=== PATIENT | male | born 1955 | race Caucasian/White ===

== ENCOUNTER → 2017-10-08 15:35 | Outpatient (CLI) | payer MEDICARE, MEDICAID, SELFPAY ==
--- NOTE | 2017-10-08 13:00 | COLBX_PTH ---
PATIENT: PRIYANKA VELEZ LOC: [facility] U#:[id number] AGE/SX: 69/M ROOM: RE10/08/[address]: Dr. Richie Johnson MD : 1955 BED: DIS: SPEC #: [id number] RECD: 10/08/17 15:24 STATUS: DREW JOSH #: [id number] BUBBA: 10/08/17 13:[address]: Richie Johnson DEPT: SURGICAL PATHOLOGY RECD BY: Wilian Lagunas ENTERED: 10/09/17 08:17 SP TYPE: COLON BX OTHR DR: Dr. Adam Rob, [facility] Tissues: Right colon Procedures: Surgery Specimen Level IV HEADER OPERATION: Colonoscopy with biopsies PRE-OP DIAGNOSIS: Screening/polyp TISSUE SUBMITTED: Right colon biopsy, rule out adenoma MICROSCOPIC DIAGNOSIS Right colon, biopsy: Fragments of colonic mucosa, no pathologic diagnosis. Negative for adenomatous changes. SJ:navid 6/13/18 MICROSCOPIC DESCRIPTION Slides are reviewed. GROSS DESCRIPTION Received in fixative is one container labeled with the patient's name and designated right colon. The specimen consists of two irregular fragments of light stehi soft tissue that in aggregate measure 0.5 x 0.2 x 0.1 cm. The specimen is totally submitted in one cassette. / SJ:rg 10/09/17 TC:4 CPT: 11893
--- NOTE | 2017-10-08 15:35 | DT_ITS ---
This patient was seen during an EMR downtime October 01, 2017 - October 08, 2017. This patient may have a combination of paper and electronic documentation or all paper documentation. All documentation is viewable within the e-chart portion of [facility] for each patient visit.
== END ==
PROVIDERS: Family Provider Preventive Medicine Occupational Medicine; PCP Preventive Medicine Occupational Medicine; Visit Provider Internal Medicine Gastroenterology
DX: Z12.11 Encounter for screening for malignant neoplasm of colon (principal)
CPT/HCPCS: 88305

== ENCOUNTER → 2017-12-19 10:59 | Outpatient (CLI) | payer MEDICARE, MEDICAID, SELFPAY ==
[2017-12-19 11:21] LABS: Platelet Count 290 K/mm3 (150-450)
[2017-12-19 11:42] LABS: Valproic Acid (Depakene) Level 60 ug/mL (50-100)
[2017-12-19 11:49] LABS: AST(SGOT) 19 U/L (15-37); Alanine Aminotransfer ALT/SGPT 33 U/L (16-61)
== END ==
PROVIDERS: Family Provider Preventive Medicine Occupational Medicine; PCP Preventive Medicine Occupational Medicine; Visit Provider Psychiatry & Neurology Psychiatry
DX: Z79.899 Other long term (current) drug therapy (principal)
CPT/HCPCS: 36415; 80164; 84450; 84460; 85049

== ENCOUNTER → 2018-06-25 09:38 | Outpatient (CLI) | payer MEDICARE, MEDICAID, SELFPAY ==
[2018-06-25 10:59] LABS: Thyroid Stim Hormone (TSH) 8.37 uIU/mL (0.358-3.74)
== END ==
PROVIDERS: Family Provider Preventive Medicine Occupational Medicine; PCP Preventive Medicine Occupational Medicine; Referring Provider Preventive Medicine Occupational Medicine; Visit Provider Preventive Medicine Occupational Medicine
DX: R53.83 Other fatigue (principal)
CPT/HCPCS: 36415; 84443

== ENCOUNTER → 2018-07-22 10:26 | Outpatient (CLI) | payer MEDICARE, MEDICAID, SELFPAY ==
--- NOTE | 2018-07-22 10:31 | US_ITS ---
STUDY: THYROID ULTRASOUND REASON FOR EXAM: Male, 62 years old. Hypothyroidism. TECHNIQUE: Ultrasound evaluation of the thyroid was performed with real-time and static rios-scale imaging. COMPARISON: None. FINDINGS: RIGHT LOBE: The right lobe of the thyroid gland measures 4.4 x 1.3 x 1.8 cm. There is a homogeneous echotexture. There are no demonstrated solid, cystic or complex lesions. Normal vascularity on Doppler imaging. LEFT LOBE: The left lobe of the thyroid gland measures 3.9 x 1.5 x 1.5 cm. There is a homogeneous echotexture. There are no demonstrated solid, cystic or complex lesions. Normal vascularity on Doppler imaging. ISTHMUS: The isthmus measures 0.2 cm. The regional lymph nodes are normal. US/Thyroid IMPRESSION: Normal ultrasound examination of the thyroid. Electronically Signed: Chuck Walters DO at 10:36 EDT Tel [phone], Service support ,
== END ==
PROVIDERS: Family Provider Preventive Medicine Occupational Medicine; PCP Preventive Medicine Occupational Medicine; Referring Provider Preventive Medicine Occupational Medicine; Visit Provider Preventive Medicine Occupational Medicine
DX: E03.9 Hypothyroidism, unspecified (principal)
CPT/HCPCS: 76536

== ENCOUNTER → 2018-11-11 09:24 | Outpatient (CLI) | payer MEDICARE, MEDICAID, SELFPAY ==
[2018-11-11 10:29] LABS: Platelet Count 295 K/mm3 (150-450)
[2018-11-11 11:43] LABS: Valproic Acid (Depakene) Level 72 ug/mL (50-100)
[2018-11-11 14:12] LABS: AST(SGOT) 14 U/L (15-37); Alanine Aminotransfer ALT/SGPT 20 U/L (16-61); Free T3 2.8 pg/mL (2.18-3.98); Prolactin 31.4 ng/mL; T4 Free Direct 1.05 ng/dL (0.76-1.46); Thyroid Stim Hormone (TSH) 5.33 uIU/mL (0.358-3.74)
[2018-11-13 11:01] LABS: Anti-Thyroglobulin AB < 1.0 IU/mL (0.0-0.9); Thyroglobulin, Serum Qt. 28.9 ng/mL (1.4-29.2); Thyroid Peroxidase AB 11 IU/mL (0-34)
== END ==
PROVIDERS: Family Provider Preventive Medicine Occupational Medicine; PCP Preventive Medicine Occupational Medicine; Referring Provider Preventive Medicine Occupational Medicine; Visit Provider Preventive Medicine Occupational Medicine
DX: R94.6 Abnormal results of thyroid function studies (principal); Z79.899 Other long term (current) drug therapy
CPT/HCPCS: 36415; 80164; 83036; 84146; 84432; 84439; 84443; 84450; 84460; 84481; 85049; 86376; 86800

== ENCOUNTER → 2019-02-25 13:41 | Outpatient (CLI) | payer MEDICARE, MEDICAID, SELFPAY ==
[2019-02-25 15:34] LABS: Thyroid Stim Hormone (TSH) 2.06 uIU/mL (0.358-3.74)
== END ==
PROVIDERS: Family Provider Preventive Medicine Occupational Medicine; PCP Preventive Medicine Occupational Medicine; Referring Provider Preventive Medicine Occupational Medicine; Visit Provider Preventive Medicine Occupational Medicine
DX: E03.9 Hypothyroidism, unspecified (principal)
CPT/HCPCS: 36415; 84443

== ENCOUNTER → 2019-12-03 12:14 | Outpatient (CLI) | payer MEDICARE, MEDICAID, SELFPAY ==
[2019-12-03 13:12] LABS: Valproic Acid (Depakene) Level 86 ug/mL (50-100)
[2019-12-03 13:18] LABS: ALB/GLOB Ratio 0.8 RATIO (0.9-2.4); AST(SGOT) 17 U/L (15-37); Alanine Aminotransfer ALT/SGPT 22 U/L (16-61); Albumin, Serum 3.3 g/dL (3.2-5.0); Alkaline Phosphatase 57 U/L (45-117); Anion Gap 4 (5-15); BUN 21 mg/dL (7-18); BUN/Creat Ratio 15.7 RATIO (10-20); Calcium,Total 8.7 mg/dL (8.5-10.1); Chloride 103 mmol/L (98-107); Creatinine, Serum 1.34 mg/dL (0.70-1.30); EST Glomerular Filtration Rate 57 mL/min (>60); Est Glom Filt Rate - Afr Amer 69 mL/min (>60); Globulin 3.9 g/dL (2.2-4.2); Glucose 90 mg/dL (74-106); PSA,Total - Annual Screen 1.95 ng/mL (0.00-4.00); Potassium 4.1 mmol/L (3.5-5.1); Protein, Total 7.2 g/dL (6.4-8.2); Sodium Level 139 mmol/L (136-145); Thyroid Stim Hormone (TSH) 2.56 uIU/mL (0.358-3.74)
== END ==
PROVIDERS: PCP Preventive Medicine Occupational Medicine; Referring Provider Preventive Medicine Occupational Medicine; Visit Provider Preventive Medicine Occupational Medicine
DX: E78.2 Mixed hyperlipidemia (principal); E03.9 Hypothyroidism, unspecified; Z12.5 Encounter for screening for malignant neoplasm of prostate; F20.89 Other schizophrenia
CPT/HCPCS: 36415; 80053; 80164; 84153; 84443; G0103

== ENCOUNTER → 2019-12-10 16:54 | Outpatient (CLI) | payer MEDICARE, MEDICAID, SELFPAY ==
[2019-12-10 17:20] LABS: Platelet Count 263 K/mm3 (150-450)
[2019-12-10 18:07] LABS: Valproic Acid (Depakene) Level 82 ug/mL (50-100)
[2019-12-10 18:08] LABS: AST(SGOT) 14 U/L (15-37); Alanine Aminotransfer ALT/SGPT 20 U/L (16-61)
[2019-12-10 18:13] LABS: Hemoglobin A1c 5.5 % (3.8-5.6)
== END ==
PROVIDERS: PCP Preventive Medicine Occupational Medicine; Referring Provider Psychiatry & Neurology Psychiatry; Visit Provider Psychiatry & Neurology Psychiatry
DX: Z79.899 Other long term (current) drug therapy (principal)
CPT/HCPCS: 36415; 80164; 82140; 83036; 84450; 84460; 85049

== ENCOUNTER 2020-01-20 08:00 | Outpatient (RCR) | payer MEDICARE, MEDICAID, SELFPAY ==
--- NOTE | 2019-06-30 17:39 | HP.PTEVAL_ITS ---
Patient's Visit Information PRIYANKA VELEZ is a 63 year old M referred to Physical Therapy by Adam Rob DO with a diagnosis of Dizziness and PD. Date of Evaluation: 06/30/19 Physical Therapist: ONI Suarez - Visit Plan Frequency: 2x /Week Duration: 6 Weeks Plan: PT is blind and PD is secondary to schizo meds over the years. 2X/ week for 4-6 weeks for gait training, balance training on and off the foam when appropriate, LE strengthening, dual task movements with HEP - Subjective Findings: Sometimes he gets pushed in a wheelchair. He does have an up walker that he just purchased. He has PD and Blind. He needs assistance with steering becasue he can not see. Somedays he walks or and other days he can not walk so good. Time thinks that his legs just wont go. He has a lot of frozen movem ents and hard for him to move his feet. He is on Schizophrenia meds. He has been on those for years and years and those have caused the PD. Dr Cronin Dx him with PD. Stairs: 5-6 steps with 1 L hand rail. He has not had any falls. He does go to bathroom by himself with hands on B sides. His walking has gotten worse last few weeks like his feet are cemented to the ground. - Objective Gait: walks with patient care assistant and therapist holding onto arm and encourgaing big steps. Pt likes to take small steps with feet barely leaving the floor. He will stop in the middle of a walk and freeze and takes some encouragement to continue. Turning 180 degrees: Pt does not like to advance his L foot and his feet are like stuck to the floor. Sit to stand: min A. LE MMT: B hip abd 4- /5, B knee ext 4/5, B knee flex 4/5, B hip flex 4-/5 - Goals Goal 1:: I HEP Goal Time Frame: 4-6 Weeks Goal 2:: Be able to walk with CGA with verbal cues to increase stride length without hesitation 150 feet. Goal Time Frame: 4-6 Weeks Goal 3:: Be able to stand on foam with CGA and feel comfortable with no LOB Goal Time Frame: 4-6 Weeks Goal 4:: Be able to complete dual task exercises in sitting or standing and complete at home Goal Time Frame: 4-6 Weeks - Rehabilitation Potential Rehabilitation Potential: Good - Anticipated Interventions Thank you for the opportunity to evaluate your patient. For Medicare and Medicare HMO plans, please review the plan of care and approve it. It will need to be FAXED BACK to us at [phone] for Medicare purposes. For Medicare only, by signing this I certify the plan of care. Please let me know if there are questions or concerns regarding this plan of care. Physician Signature: Date:
--- NOTE | 2019-07-01 08:14 | HP.OTEVAL_ITS ---
Patient's Visit Information PRIYANKA VELEZ is a 63 year old M, referred to Occupational Therapy by Adam Rob DO, with a diagnosis of PD. Date of Evaluation: 06/30/19 Occupational Therapist: RACHEL Fatima/Jose Luis, CHT - Subjective Subjective: This 63 year old male was seen for OT eval with dx. of PD. pt blind. Pt lives in home with two other individuals- likes to be in his room, listen to music and goes to workshop. PT dresses himself- use of shower chair but bathes himself- will dress in his room sitting in recliner- but does so ind. Here today due to a increase in right hand tremor. Has had tremor of right UE for about a year. states it bothers him that he makes a mess while eating. has ramp entrance split level home- has 5-6 steps up to his bedroom-he is mobility in home he is supervised. staff has used plate guard to help decrease food spillage. goes to workshop- 9-3pm - ADLs Comments: pt lives in snf with two others- has assistance as needed with bathing/dressing- per care staff pt is supervised with bathing-but pt performs all ADLS at DANIELLE level- has staff perform set-up for meals and cut his food- pt concerns are with increase tremor and increase spillage of food- pt able to drink without difficulty- - Objective Objective/Observation: slight resting tremor noted when given spoon no noted increase in tremor- therapist will work with pt and has advised staff to observe if pt has increase tremor when pt is tired, see if he has increase spillage with shallow spoons- staff receptive- - ROM ROM Comments: pt demo all ROM WNL - St[employer]iting Intern: right 48# left boiler erector 50# Lateral Pinch: right 12# left 12# Strength Comments: pt demo with good functional strength - Sensation Sensation Comments: denies - Quick DASH-Disab of Arm,Shoulder& Hand Quick DASH Score: 27.2725 - Goals Goal:: Pt and care staff will demo understanding of using ad. eq. to increase ind. with self feeding with report of min. spillage by d/c - Rehabilitation General Assessment: pt demo with slight tremor of right UE limiting pts self feeding- pt would benefit from skilled OT services 3 visits to ed. pt and staff on ad. eq. use of plates and or weighted silverwear to decrease spillage with meals. Rehabilitation Potential: Good - Anticipated Interventions Anticipated Interventions: ADL Training, Education re assistive Equipment, Caregiver Training, Home Program - Visit Plan Frequency: 1x/Week Duration: 3 Weeks TEXT: Thank you for the opportunity to evaluate your patient. For Medicare and Medicare HMO plans, please review the plan of care and approve it. It will need to be FAXED BACK to us at [phone] for Medicare purposes. Please let me know if there are questions or concerns regarding this plan of care. Physician Sig nature: Date:
--- NOTE | 2019-10-24 16:01 | HP.OT.NRP ---
PRIYANKA VELEZ was seen in my office for initial evaluation on 06/30/19. The following Plan of Care was established for this patient: Initial Frequency: 1x/Week Initial Duration: 3 Weeks Anticipated Interventions: ADL Training, Education re assistive Equipment, Caregiver Training, Home Program This patient was last seen in our office 07/20/29. Pertinent comments regarding their Occupational therapy will appear below: pt was seen for 2 ot visits due to covid pt has not rescheduled and due to time lapse in skilled therapy services pt d/c. At this point I will be discontinuing this patient from occupational therapy. I would be happy to see this patient again in the future if found appropriate by the physician. Thank you! Ariela Espinoza, OTR/L, CHT
--- NOTE | 2019-10-29 17:28 | HP.PTREVAL ---
Dr. Adam Rob, DO, It has been my pleasure to treat PRIYANKA VELEZ over the last 2 visits for Dizziness and PD. Please see the progress note below for an update on the physical therapy plan of care! Subjective: Elda gave all the information. Pt was told that he had PD and he has a serious decline in his walking. This all came about cause he was at the eye Dr and he suggested that he do some OT and PT. He is doing better with his walking at home and has 5-6 steps upstairs and was going up on his bottom and his provider has encouraged him to use his legs and he is walking back and forth to the bathroom. His gait is very shuffled and takes him a long time. They think that he is alos blind and anxiety also is part of him not walking. He has been in the house for 33 years and knows the layout of the house. He is unsure of himself at the top of the stairs. He walks the carter to guide him at home. He has been pushing his chair to the dining room table. He likes to hold onto the door frame and wont let go when leaving . He does have an upright walker and it almost rolls too fast..... Provider was going to send the rollator to see if they could slow it down. He is pedeling with a floor bike up to 25 min each morning. They have been encouraging the walking to the porch. Pt reports that he is afraid to fall. Elda says that his legs start shaking with his walking. Elda reports that he uses a shower chair and has trouble with sitting to standing. Objective/Function: LE MMT: hip flex 4-/5 B, Knee ext B 4-/5, Knee flex B 4-/5. Sit to stand: uses hands to stand.....keeps hands on the wheelchair and needs coaxing to get her hand off the chair rails to stand. Standning... pt able to stand unsupported X 30 seconds but then started to have knee buckling and anxiety about standing alone and started panicking. Gait: walked with Elda (aide) and therapist hand in hand and he would not advance his feet without coaxing and his feet were shuffling.... He would start to walk fluid and then his feet would stick to the ground and his upper body would shift forward and he would need increase in commands to move his feet. Got the Ustep out and pt started to walk a few feet with min A and verbal commands and then he got tired and his trunk and ustep was forward and his feet were clued to the floor. He was tired for the day Plan Plan: PT is blind and PD is secondary to schizo meds over the years. 2X/ week for 4-6 weeks for gait training, balance training on and off the foam when appropriate, LE strengthening, dual task movements with HEP Goals Goal 1:: I HEP Goal Time Frame: 4-6 Weeks Goal 2:: Be able to walk with CGA with verbal cues to increase stride length without hesitation 150 feet with least restrictive device. Goal Time Frame: 4-6 Weeks Goal 3:: Be able to stand on foam with CGA and feel comfortable with no LOB Goal Time Frame: 4-6 Weeks Goal 4:: Be able to complete dual task exercises in sitting or standing and complete at home Goal Time Frame: 4-6 Weeks Anticipated Interventions Please do not hesitate to contact me at [phone] by phone or if you have questions or concerns regarding this new plan of care! Sincerely, Jackie Kaplan, MPT
--- NOTE | 2019-11-26 18:32 | HP.PTREVAL ---
Dr. Adam Rob, DO, It has been my pleasure to treat PRIYANKA VELEZ over the last 9 visits for Dizziness and PD. Please see the progress note below for an update on the physical therapy plan of care! Subjective: Elda (caregiver) said that Marlon has a virtual appointment with Neuro eli and is a new Dr and he has a regular family Dr in the begining of the month. They want to continue as they dont know if his anxiety will get addressed until November. Elda reports that they are walking in the driveway at home but he is so nervoust that it is difficult for them to do so. Objective/Function: Pt has good days and bad days. Sometimes he is able to walk a few smooth recip steps but then he stops and will not order picker/assembler his feet. He is getting better with sit to stnad by pushing off his chair and not pulling self up. He is also getting better at standing Olivia with nothing to hold onto. Plan Plan: PT is blind and PD is secondary to schizo meds over the years. 2X/ week for 4-6 weeks for gait training, balance training on and off the foam when appropriate, LE strengthening, dual task movements with HEP Goals Goal 1:: I HEP Goal Time Frame: 4-6 Weeks Goal 2:: Be able to walk with CGA with verbal cues to increase stride length without hesitation 150 feet with least restrictive device. Goal Time Frame: 4-6 Weeks Goal 3:: Be able to stand on foam with CGA and feel comfortable with no LOB Goal Time Frame: 4-6 Weeks Goal Progress: Progressing Goal 4:: Be able to complete dual task exercises in sitting or standing and complete at home Goal Time Frame: 4-6 Weeks Goal 5:: Be able to stand with feet together with head turns without LOB or fear of falling Goal Time Frame: 4-6 Weeks Anticipated Interventions Please do not hesitate to contact me at [phone] by phone or if you have questions or concerns regarding this new plan of care! Sincerely, Jackie Kaplan, MPT
--- NOTE | 2020-01-20 11:02 | HP.PTDCSUM_ITS ---
It has been my pleasure to treat PRIYANKA VELEZ referred by Dr. Adam Rob DO, with the diagnosis of Dizziness and PD for a total of 19 visit(s). Discharge Date: 01/20/20 Please see the following information for a summary of their discharge status. Subjective: Elda, caregiver, reports that it has been difficult for Marlon to go up and down the stairs... he has one hand rail and one is on order. He freezes on the steps. He is having a hard time with walking several feet from the kitchen table to the stairs..... he takes very very tiny steps and does not pickle solution maker his feet. Elda feels that they are having to pull him to go across the dining room floor etc. They have been giving him the dining room chair to push across the floor and he feels less tense when he is moving across the floor. They have been doing peddling at home in his chair bike. % Improvement: 20 Objective/Function: Pt is not progressing at this time. He is not progressing with his walking and he has a terrible time with moving his feet. Even sit to stand he starts shaking and needs help releasing his manager access to stand up from the chair. Pt was given HEP via Elda, caregiver, to do at home 5X/ wek. Pt needs reassessment from MD as his transfers, walking, stairs have all gotten worse with freezing. Not sure if PD related or anxiety releated. Goal 1:: I HEP Goal Progress: Progressing Goal 2:: Be able to walk with CGA with verbal cues to increase stride length without hesitation 150 feet with least restrictive device. Goal Progress: Not Progressing Goal 3:: Be able to stand on foam with CGA and feel comfortable with no LOB Goal Progress: Progressing Goal 4:: Be able to complete dual task exercises in sitting or standing and complete at home Goal Progress: Not Progressing Goal 5:: Be able to stand with feet together with head turns without LOB or fear of falling Goal Progress: Not Progressing Plan: DC PT at this time..... back to Neurologist with HEP Discharge Comments: DC PT to HEP. Possible home assessment for stairs (possible chair lift) and other wall railings etc to make things a little more functional for him at home. If there are questions or concerns regarding this patient's physical therapy, please feel free to call me at [phone]. Thank you for the referral of this patient. Sincerely, Jackie Kaplan MPT
== END 2020-01-20 19:00 | disposition home or self-care (01) ==
LOC: PT 08:00
PROVIDERS: PCP Preventive Medicine Occupational Medicine; Referring Provider Preventive Medicine Occupational Medicine; Visit Provider Preventive Medicine Occupational Medicine
DX: G20 Parkinson's disease (principal)
CPT/HCPCS: 97110; 97116; 97163; 97166; 97530

== ENCOUNTER → 2020-06-09 15:14 | Outpatient (CLI) | payer MEDICARE, MEDICAID, SELFPAY ==
[2020-06-09 16:07] LABS: Platelet Count 240 K/mm3 (150-450)
[2020-06-09 16:46] LABS: AST(SGOT) 12 U/L (15-37); Alanine Aminotransfer ALT/SGPT 19 U/L (16-61); Valproic Acid (Depakene) Level 89 ug/mL (50-100)
== END ==
PROVIDERS: PCP Preventive Medicine Occupational Medicine; Visit Provider Psychiatry & Neurology Psychiatry
DX: Z79.899 Other long term (current) drug therapy (principal)
CPT/HCPCS: 36415; 80164; 82140; 84450; 84460; 85049

== ENCOUNTER → 2020-06-25 12:49 | Outpatient (CLI) | payer MEDICARE, MEDICAID, SELFPAY ==
--- NOTE | 2020-06-25 12:56 | MRI_ITS ---
STUDY: MRI BRAIN WITHOUT CONTRAST REASON FOR EXAM: Male, 64 years old. NPH TECHNIQUE: Standardized multiplanar fat and water weighted pulse sequences were obtained. COMPARISON: 05/16/2016 FINDINGS: There is disproportionate ventricular enlargement with prominence of the anterior horns and temporal tips of the bilateral lateral ventricles. There is confluent periventricular hyperintensity cloaking the lateral ventricles. There is thinning with bowing of the corpus callosum. There is moderate enlargement of the third ventricle. The findings are highly suggestive of normal pressure hydrocephalus (NPH). There are a limited number of small white matter hyperintensities, distributed throughout the deep white matter tracts of the cerebral hemispheres, consistent with mild chronic white matter ischemic changes. There is no evidence for recent intracranial ischemia or other cause of cytotoxic edema on diffusion weighted imaging (DWI). Normal T2* images of the brain without demonstrated susceptibility artifact. There is no demonstrated hemosiderin stain. Normal bilateral basal ganglia. Normal thalami. There is no extra-axial fluid accumulation. Normal flow voids within the major intracranial circulation suggesting patency by spin echo criteria. Normal sella turcica, pituitary gland, infundibular stalk, optic chiasm and hypothalamus. Normal tectal plate and pineal gland. Normal midbrain, eden and medulla. Normal cerebellum. Normal basal cisterns. Normal bilateral temporal bones. Normal bilateral internal auditory canals. No demonstrated orbital abnormality, within the constraints of a routine brain study. Normal visualized paranasal sinuses. Normal calvarium and skull base. Normal visualized soft tissue structures. Normal visualized upper cervical spine. MRI/Brain without Contrast IMPRESSION: Involutional changes of the brain, as described above. No change in the dilatation of the third and lateral ventricles suggestive of normal pressure hydrocephalus. Electronically Signed: Tex Wilson MD at 15:47 EST Tel , Service support ,
== END ==
PROVIDERS: PCP Preventive Medicine Occupational Medicine; Referring Provider Psychiatry & Neurology Neurology; Visit Provider Psychiatry & Neurology Neurology
DX: G91.2 (Idiopathic) normal pressure hydrocephalus (principal)
CPT/HCPCS: 70551

== ENCOUNTER 2021-06-01 09:33 | Outpatient (CLI) | payer MEDICARE, MEDICAID, SELFPAY ==
[2021-06-01 10:00] LABS: Hematocrit 37.5 % (40-54); Hemoglobin 12.1 g/dL (13.0-16.5); Mean Corp Hgb Conc 32.3 g/dL (32-36); Mean Corpuscular Hgb 31.5 pg (27.0-32.0); Mean Corpuscular Volume 97.7 fL (80-94); Mean Platelet Vol. 9.3 fl (6.2-12.0); Platelet Count 258 K/mm3 (150-450); RBC Distribution Width CV 12.9 % (11.6-14.6); Red Blood Count 3.84 M/mm3 (4.6-6.2); White Blood Count 7.1 K/mm3 (4.4-11.0)
[2021-06-01 10:19] LABS: Hemoglobin A1c 5.4 % (3.8-5.6)
[2021-06-01 10:32] LABS: Valproic Acid (Depakene) Level 85 ug/mL (50-100)
[2021-06-01 10:44] LABS: AST(SGOT) 10 U/L (15-37); Alanine Aminotransfer ALT/SGPT 12 U/L (16-61); Iron 101 ug/dL (65-175); PSA,Total - Annual Screen 1.39 ng/mL (0.00-4.00); Prolactin 42.9 ng/mL; Thyroid Stim Hormone (TSH) 2.62 uIU/mL (0.358-3.74)
== END 2021-06-01 23:59 | disposition short-term general hospital (02) ==
LOC: LAB 09:38
PROVIDERS: PCP Preventive Medicine Occupational Medicine; Referring Provider Psychiatry & Neurology Psychiatry; Visit Provider Psychiatry & Neurology Psychiatry
DX: D64.9 Anemia, unspecified (principal); Z79.899 Other long term (current) drug therapy; Z12.5 Encounter for screening for malignant neoplasm of prostate; E03.9 Hypothyroidism, unspecified
CPT/HCPCS: 80164; 82140; 83036; 83540; 84146; 84153; 84443; 84450; 84460; 85027; G0103

== ENCOUNTER 2021-07-06 16:30 | Outpatient (RCR) | payer MEDICARE, MEDICAID, SELFPAY ==
--- NOTE | 2021-04-08 15:55 | HP.PTEVAL_ITS ---
Patient's Visit Information PRIYANKA VELEZ is a 65 year old M referred to Physical Therapy by Dr. Mike Finley MD with a diagnosis of normal pressure hydrocephalus. Date of Evaluation: 04/08/21 Physical Therapist: ONI Suarez - Visit Plan Duration: 3 Months Plan: 1X/ week for instruction to caregivers about HEP on transfers, gait, HEP. Will work on gait, balance, sensory, LE strength - Subjective Pt had surgery and had a shunt put in for hydrocepalus in August 2020. When he came home he was up walking with the walker after the surgery for a couple of months. But now we are not walking at home. Not sure what changed. He does go up and down the steps with someone and walks down the hallways with both hands on a cedillo rail. Other than that he crawls to get somewhere. They had some home PT come at home but they did not push him. He still has anxiety. The day service he goes to and at home he is pretty much in the chair. Caregiver wants him to come here to PT to push him to walk. He does bare weight and transfer. He lives in a nursing home. The neurologist feels that his legs are weak. He does not see the neurologist for 6 months. He is complaining about dizziness. Dr are not sure what causing the dizziness. He is on meclazene for dizziness and was just put on that within the last couple of months and he is not complaining of dizziness. He is stuggling getting in and out of a chair. He has put on some weight and wondering if his weight has caused more difficulty getting out of a chair. He gets out of bed, goes to potty chair next to bed, gets dressed, shuffles/walks down the hallway with 2 hands on rails and waits at top of stairs for someone to help him down the stairs. - Objective Pt is able to scoot to the edge of the chair on command. Sit to stand: takes coaxing X 2 with a gait belt with hands on wheelchair and will stand up with his trunk fw and knees bent and needed tactile cues and min A to remove his hands from the wheelchair rail and tactile cues to straighten knees and tuck in buttocks. Pt is able to stand unsupported with SBA once he is standing erect. He is also able to stand and rotate head with CGA. Gait: pt is able to walk with a front wheeled walker and take a few shuffled steps then stops and groans and knees move but feet do not. I talked the pt then to take a few more steps and with coaxing he takes a few shuffled steps. LE MMT: B hip flex 4/5, B knee ext 4-/5, B knee flex 4/5, B seated hip abd 4/5 - Balance/Special Test Scores Lower Extremity Functional Score: 10 - Goals Goal 1:: I HEP for the caregiver to work with him at home with gait with a wheeled walker and use // bars for exercises (which they have at home), and LE strengthening Goal Time Frame: 6-8 Weeks Goal 2:: Be able to get up out of a chair on command with CGA on first attempt and stand full erect without hesitation Goal Time Frame: 6-8 Weeks Goal 3:: Be able to walk with front wheeled walker 50 feet continuous steps without hesitation and stopping in middle of walk Goal Time Frame: 6-8 Weeks - Rehabilitation Potential Rehabilitation Potential: Good - Anticipated Interventions Thank you for the opportunity to evaluate your patient. For Medicare and Medicare HMO plans, please review the plan of care and approve it. It will need to be FAXED BACK to us at [phone] for Medicare purposes. For Medicare only, by signing this I certify the plan of care. Please let me know if there are questions or concerns regarding this plan of care. Physician Signature: Date:
--- NOTE | 2021-06-22 17:01 | HP.PTREVAL ---
Dr. Mike Finley MD, It has been my pleasure to treat PRIYANKA VELEZ over the last 6 visits for normal pressure hydrocephalus. Please see the progress note below for an update on the physical therapy plan of care! Subjective: They just have not been here. Pt walks up the steps and down the cedillo to his bedroom. He has a railing on B rails on both sides of the hallway and stairs. He is still dressing himself and showers himself with supervision for safety. Sometimes he goes up the steps good and other times he feels weak at the top of the stairs (it is only 6 setps). One day he was able to get up from the recliner and across the room to his potty chair all by himself and Marlon did not know anyone was watching. He does better when he is told to just do it and no one is touching him such as getting into the van. Pt complains of dizziness all the time. Objective/Function: Pt walked 76 feet with front wheeled walker with wheelchair follow with commands to keep moving his feet. He stopped e=several times and fesination of his feet at times. Plan Plan: 1X/ week for instruction to caregivers about HEP on transfers, gait, HEP. Will work on gait, balance, sensory, LE strength Balance/Gait/Functional tests - Balance/Special Test Scores Lower Extremity Functional Score: 21 Goals Goal 1:: I HEP for the caregiver to work with him at home with gait with a wheeled walker and use // bars for exercises (which they have at home), and LE strengthening Goal Time Frame: 6-8 Weeks Goal Progress: Progressing Goal 2:: Be able to get up out of a chair on command with CGA on first attempt and stand full erect without hesitation Goal Time Frame: 6-8 Weeks Goal Progress: Progressing Goal 3:: Be able to walk with front wheeled walker 100 feet continuous steps without hesitation and stopping in middle of walk Goal Time Frame: 6-8 Weeks Anticipated Interventions Please do not hesitate to contact me at [phone] by phone or if you have questions or concerns regarding this new plan of care! Sincerely, Jackie Kaplan, MPT
--- NOTE | 2021-07-06 18:06 | HP.PTREVAL ---
Dr. Mike Finley MD, It has been my pleasure to treat PRIYANKA VELEZ over the last 7 visits for normal pressure hydrocephalus. Please see the progress note below for an update on the physical therapy plan of care! Subjective: Pt came today in his wheelchair with another caregiver who has been with him since he was 38 years old. Objective/Function: Pt did well today with less tactile cues and more verbal cueing and letting pt go at this own pace. Talked with caregiver and patient about having the pt walk from the steps to the dining room table every day Plan Plan: 1X/ week for instruction to caregivers about HEP on transfers, gait, HEP. Will work on gait, balance, sensory, LE strength Balance/Gait/Functional tests - Balance/Special Test Scores Lower Extremity Functional Score: 21 Goals Goal 1:: I HEP for the caregiver to work with him at home with gait with a wheeled walker and use // bars for exercises (which they have at home), and LE strengthening Goal Time Frame: 6-8 Weeks Goal Progress: Progressing Goal 2:: Be able to get up out of a chair on command with CGA on first attempt and stand full erect without hesitation Goal Time Frame: 6-8 Weeks Goal Progress: Progressing Goal 3:: Be able to walk with front wheeled walker 100 feet continuous steps without hesitation and stopping in middle of walk Goal Time Frame: 6-8 Weeks Goal 4:: Walk from the bottom of stairs at home to the dinning room table with a front wheeled walker for 14 days straight in a row. Anticipated Interventions Please do not hesitate to contact me at [phone] by phone or if you have questions or concerns regarding this new plan of care! Sincerely, Jackie Kaplan, MPT
== END 2021-07-06 19:00 | disposition home or self-care (01) ==
LOC: PT 16:30
PROVIDERS: PCP Preventive Medicine Occupational Medicine; Referring Provider Neurological Surgery; Visit Provider Neurological Surgery
DX: G91.2 (Idiopathic) normal pressure hydrocephalus (principal)
CPT/HCPCS: 97110; 97116; 97162; 97530

== ENCOUNTER 2022-01-26 07:12 | Emergency (ER) | payer MEDICARE, MEDICAID, SELFPAY ==
[2022-01-26 07:13] VITALS: PULSE 70; RESP 27; TEMP 37; O2SAT 93; BMI 26.2
[2022-01-26 07:20] VITALS: BP 119/70; PULSE 86; PULSE 87; RESP 16; TEMP 37; O2SAT 96
--- NOTE | 2022-01-26 07:28 | EX.ED.DYSGE1 ---
HPI History of Present Illness Chief Complaint: Weakness Informant: patient and other Narrative Narrative: Parkinson's dementia with bipolar history sent in from senior care for evaluation increasing weakness due to COVID. Diagnosed yesterday. senior living with positive COVID throughout. Patient vaccinated with the booster. Staff member present states he had COVID 4 weeks ago with mild symptoms low-grade fever lasted 2 days. Mild cough for 2 days yesterday tested positive this morning had a temp of 100 had concerns of wheezing and patient would not walk. Notably walk with assistance. There is been no vomiting or diarrhea. Prior similar symptoms: Yes PFSH PFSH Medical History (Updated 01/26/22 @ 08:[address] Manjit Lopez, DO) Bipolar 1 disorder GERD (gastroesophageal reflux disease) Hypothyroidism Parkinson disease Schizophrenia Home Medications acetaminophen 500 mg tablet 1,000 mg PO Q6H PRN pain/fever 01/26/22 [History Last Taken Unknown] bupropion HCl 100 mg tablet 100 mg PO DAILY 01/26/22 [History Last Taken Unknown] divalproex 500 mg tablet,extended release 24 hr 1,500 mg PO DAILY 01/26/22 [History Last Taken Unknown] guaifenesin 100 mg/5 mL oral liquid 200 mg PO Q4H PRN Cough 01/26/22 [History Last Taken Unknown] levothyroxine 75 mcg tablet 75 mcg PO QHS 01/26/22 [History Last Taken Unknown] mirabegron 50 mg tablet,extended release 24 hr (Myrbetriq) 50 mg PO DAILY 01/26/22 [History Last Taken Unknown] nirmatrelvir 300 mg (150 mg x2)-ritonavir 100 mg tablet,dose pack(EUA) (Paxlovid) See Rx Instructions PO .COMPLEX #30 tabs 01/26/22 [Rx Last Taken Unknown] omeprazole 20 mg tablet,delayed release 20 mg PO DAILY 01/26/22 [History Last Taken Unknown] risperidone 1 mg tablet (Risperdal) 1 mg PO BREAKFAST 01/26/22 [History Last Taken Unknown] risperidone 1 mg tablet (Risperdal) 1.5 mg PO QHS 01/26/22 [History Last Taken Unknown] triamterene 37.5 mg-hydrochlorothiazide 25 mg tablet 1 tab PO DAILY 01/26/22 [History Last Taken Unknown] trihexyphenidyl 2 mg tablet 4 mg PO BID 01/26/22 [History Last Taken Unknown] Allergy/AdvReac Type Severity Reaction Status Date / Time No Known Allergies Allergy Verified 01/26/22 07:16 Surgical History (Updated 01/26/22 @ 07:40 by Brianne Valencia) Intracranial shunt Social History Smoking Status: Former smoker ROS ROS ED Constitutional Constitutional ED: Reports fever(s); Denies chills or sweats Eyes Eyes: Denies change in vision ENT ENT ED: Denies dysphagia or sore throat Cardiovascular Cardiovascular: Denies chest pain, leg edema, palpitations or racing heartbeat Respiratory/Chest Respiratory/Chest: Reports cough; Denies dyspnea or dyspnea on exertion Gastrointestinal Gastrointestinal: Denies abdominal pain, diarrhea, nausea or vomiting Genitourinary Genitourinary ED: Denies dysuria, hematuria or urinary frequency Musculoskeletal Musculoskeletal: Denies back pain, extremity pain or neck pain Integumentary Denies rash or wounds Neurologic Neurologic: Reports weakness; Denies headache(s) or paresthesias EXAM Physical Exam Const Vital Signs: 01/26/22 07:13 01/26/22 07:20 01/26/22 07:20 Temperature 98.6 F 98.6 F 98.6 F Temperature Source Oral Oral Oral Pulse Rate 70 87 86 Respiratory Rate 27 H 16 16 Respiratory Effort Respiratory Pattern Blood Pressure 119/70 119/70 Blood Pressure Mean 86 86 Pulse Ox 93 96 96 Oxygen Delivery Method Room Air Room Air Room Air 01/26/22 07:40 01/26/22 09:28 Temperature Temperature Source Pulse Rate 85 Respiratory Rate 23 H Respiratory Effort Normal Non-Labored Respiratory Pattern Normal Blood Pressure 99/63 Blood Pressure Mean Pulse Ox 96 Oxygen Delivery Method Positive well nourished and well developed Constitutional Narrative: Nontoxic, following commands, answering questions General Appearance ED: well developed and NAD HEENT Reports moist mucous membranes normocephalic and atraumatic Eyes Eyes Narrative: Patient is blind General Eye ED: Yes normal appearance of both eyes Neck no lymphadenopathy and supple General: Negative for tenderness Chest Wall Chest: Negative for tenderness Resp normal respiratory effort and normal air movement Effort and Inspection: symmetric chest movement; Negative for respiratory distress Cardio regular rate, regular rhythm and no murmurs Peripheral Pulses: pulses 2+ throughout GI normal to inspection, nondistended, normoactive bowel sounds and non-tender Palpation: Negative for guarding or rebound tenderness present Back/Spine no CVA tenderness and no thoracic nor lumbar tenderness Extremity normal to inspection General Extremety ED: Negative for edema or tenderness General Extremity: Negative for edema Neuro no sensory deficits noted Neuro Narrative: patient able to tell me his name and current location. Sensorium / Orientation: awake and alert Skin no rashes or lesions noted and no wounds MDM MDM MDM Narrative Medical decision making narrative: Patient nontoxic vital signs stable. COVID diagnosed yesterday. Chest x-ray 1 view reviewed by myself and read by radiology negative. Labs had a white count of 15 sodium 133 creatinine 1.26. GFR 61. Staff member senior care was present. Discussed his increasing weakness which started today. I discussed that there are staffing at the facility to take care of the patient with his weakness. They state there is they will likely move down to the first floor. Onset 2 days discussed treatment Paxlovid with side effects. They will consider this. Prescription was written. Return precautions discussed. All questions were answered. Lab Data Labs: Laboratory Results - last 24 hr 01/26/22 01/26/22 07:35 07:35 WBC 15.0 H RBC 3.81 L Hgb 12.4 L Hct 36.4 L MCV 95.5 H MCH 32.5 H MCHC 34.1 RDW Std Deviation 45.1 H RDW Coeff of Adrian 12.8 Plt Count 168 MPV 10.0 Immature Gran % (Auto) 0.400 Neut % (Auto) 79.6 H Lymph % (Auto) 6.3 L Greer % (Auto) 13.5 H Eos % (Auto) 0.0 Baso % (Auto) 0.2 Absolute Neuts (auto) 12.0 H Absolute Lymphs (auto) 0.94 Nucleated RBC % 0 Differential Comment COMMENT Diff Path Review Reviewed Sodium 133 L Potassium 4.0 Chloride 94 L Carbon Dioxide 31.0 Anion Gap 8 BUN 16 Creatinine 1.26 Estim Creat Clear Calc 55.04 Est GFR (MDRD) Af Amer 73 Est GFR (MDRD) Non-Af 61 BUN/Creatinine Ratio 12.7 Glucose 98 Calcium 8.4 L Radiography Diagnostic Testing: Clinical Impression(s) from Imaging Studies Chest X-Ray 01/26/22 07:50 IMPRESSION: No acute findings in the chest. Electronically Signed: Zelalem Norton MD at 8:14 EDT , Discharge Plan Triage Chief Complaint: Weakness ED Provider: Manjit Lopez Dx/Rx/DC Orders Clinical Impression: COVID-19 virus infection, Weakness, Blind, Acute hyponatremia Instructions: Coronavirus Disease 2019 (COVID-19): Caring for Yourself or Others, ED Weakness (Uncertain Cause) Prescriptions: New Paxlovid (EUA) 300 mg (150 mg x 2)-100 mg tablets,dose pack See Rx Instructions .ROUTE .COMPLEX Qty: 30 0RF Rx Instructions: take TWO 150 mg tablets of nirmatrelvir with ONE 100 mg tablet of ritonavir twice daily for 5 days No Action acetaminophen 500 mg Tablet 1,000 mg PO Q6H PRN (Reason: pain/fever) guaifenesin [Q-Tussin] 100 mg/5 mL Liquid 200 mg PO Q4H PRN (Reason: Cough) levothyroxine 75 mcg Tablet 75 mcg PO QHS bupropion HCl 100 mg Tablet 100 mg PO DAILY divalproex 500 mg Tablet Extended Release 24 Hr 1,500 mg PO DAILY triamterene-hydrochlorothiazid 37.5-25 mg Tablet 1 tab PO DAILY trihexyphenidyl 2 mg Tablet 4 mg PO BID Rx Instructions: give with food (meal/snack) risperidone [Risperdal] 1 mg Tablet 1 mg PO BREAKFAST risperidone [Risperdal] 1 mg Tablet 1.5 mg PO QHS omeprazole 20 mg Tablet,Delayed Release (Dr/Ec) 20 mg PO DAILY Myrbetriq 50 mg Tablet Extended Release 24 Hr 50 mg PO DAILY Primary Care Provider: Adam Rob Referrals: Adam Rob DO [Primary Care Provider] - 3-5 Days Activity Restrictions/Additional Instructions: Chest x-ray normal. Labs White count 15. Sodium 133. Take medication as prescribed. Return if any respiratory symptoms or pulse ox less than 88%. Disposition Disposition: Home, Self Care Discharge Date/Time: 01/26/22 09:45
[2022-01-26 07:48] LABS: Absolute Lymphocyte Count 0.94 X10^3/uL (0.83-4.51); Basophil# 0.03 X10^3/uL; Basophil% 0.2 % (0-1); Hematocrit 36.4 % (40-54); Hemoglobin 12.4 g/dL (13.0-16.5); Lymphocyte # 0.94 X10^3/ul (0.83-4.51); Lymphocyte % 6.3 % (19-41); Mean Corp Hgb Conc 34.1 g/dL (32-36); Mean Corpuscular Hgb 32.5 pg (27.0-32.0); Mean Corpuscular Volume 95.5 fL (80-94); Monocyte# 2.03 X10^3/uL; Monocyte% 13.5 % (0-10); NRBC Flagged by Analyzer 0 % (0-5); Neutrophil # 11.98 X10^3/uL (2.7-7.7); Neutrophil % 79.6 % (47-70); POSITIVE DIFFERENTIAL YES; Platelet Count 168 K/mm3 (150-450); RBC Distribution Width CV 12.8 % (11.6-14.6); RBC Distribution Width SD 45.1 fl (35.1-43.9); Red Blood Count 3.81 M/mm3 (4.6-6.2)
[2022-01-26 07:49] LABS: Differential Indicated SCAN CRITERIA MET
--- NOTE | 2022-01-26 07:50 | RAD_ITS ---
EXAM: XR CHEST, 1 VIEW CLINICAL INDICATION: cough -- covid + TECHNIQUE: Frontal view of the chest. This report was created using [employer] report generation technology. COMPARISON: None. FINDINGS: LUNGS AND PLEURAL SPACES: Normal. No consolidation or edema. No pneumothorax. No effusion. HEART: Normal heart size. MEDIASTINUM: No mediastinal or hilar mass. BONES/JOINTS: No acute abnormality. SOFT TISSUES: Normal. TUBES, LINES AND DEVICES: Right-sided APPEALS COORDINATOR shunt tube is noted. RAD/Chest 1 View (Portable) IMPRESSION: No acute findings in the chest. Electronically Signed: Zelalem Norton MD at 8:14 EDT ,
[2022-01-26 08:01] LABS: BUN 16 mg/dL (7-18); Creatinine, Serum 1.26 mg/dL (0.70-1.30); EST Glomerular Filtration Rate 61 mL/min (>60); Estimated Creatinine Clearance 55.04 ml/min; Glucose 98 mg/dL (74-106)
[2022-01-26 08:02] LABS: Anion Gap 8 (5-15); BUN/Creat Ratio 12.7 RATIO (10-20); Calcium,Total 8.4 mg/dL (8.5-10.1); Chloride 94 mmol/L (98-107); Est Glom Filt Rate - Afr Amer 73 mL/min (>60); Sodium Level 133 mmol/L (136-145)
[2022-01-26 09:28] VITALS: BP 99/63; PULSE 85; RESP 23; O2SAT 96
[2022-01-26 13:35] LABS: Pathologist Review Reviewed
== END 2022-01-26 09:45 | disposition home or self-care (01) ==
PROVIDERS: Emergency Provider Emergency Medicine; PCP Preventive Medicine Occupational Medicine; Visit Provider Emergency Medicine
DX: U07.1 COVID-19 (principal); G20 Parkinson's disease; F02.80 Dementia in other diseases classified elsewhere, unspecified severity, without behavioral disturbance, psychotic disturbance, mood disturbance, and anxiety; F31.9 Bipolar disorder, unspecified; E87.1 Hypo-osmolality and hyponatremia; Z87.891 Personal history of nicotine dependence; H54.7 Unspecified visual loss; K21.9 Gastro-esophageal reflux disease without esophagitis; E03.9 Hypothyroidism, unspecified
CPT/HCPCS: 71045; 80048; 85025; 99284; A4216

== ENCOUNTER → 2022-06-06 | Outpatient (CLI) | payer MEDICARE, MEDICAID, SELFPAY ==
[2022-06-06 10:20] LABS: Hematocrit 38.7 % (40-54); Hemoglobin 12.8 g/dL (13.0-16.5); Mean Corp Hgb Conc 33.1 g/dL (32-36); Mean Corpuscular Hgb 31.7 pg (27.0-32.0); Mean Corpuscular Volume 95.8 fL (80-94); Mean Platelet Vol. 9.5 fl (6.2-12.0); Platelet Count 236 K/mm3 (150-450); RBC Distribution Width CV 12.7 % (11.6-14.6); RBC Distribution Width SD 44.9 fl (35.1-43.9); Red Blood Count 4.04 M/mm3 (4.6-6.2); White Blood Count 5.7 K/mm3 (4.4-11.0)
[2022-06-06 11:59] LABS: ALB/GLOB Ratio 0.7 RATIO (0.9-2.4); AST(SGOT) 18 U/L (15-37); Alanine Aminotransfer ALT/SGPT 19 U/L (16-61); Alkaline Phosphatase 56 U/L (45-117); Anion Gap 6 (5-15); BUN 25 mg/dL (7-18); BUN/Creat Ratio 21.6 RATIO (10-20); Calcium,Total 8.8 mg/dL (8.5-10.1); Chloride 106 mmol/L (98-107); Cholesterol 189 mg/dL (200); Creatinine, Serum 1.16 mg/dL (0.70-1.30); EST Glomerular Filtration Rate 67 mL/min (>60); Est Glom Filt Rate - Afr Amer 81 mL/min (>60); Globulin 4.2 g/dL (2.2-4.2); Glucose 95 mg/dL (74-106); High Density Lipoprotein 55 mg/dL; PSA,Total - Annual Screen 0.69 ng/mL (0.00-4.00); Potassium 4.5 mmol/L (3.5-5.1); Protein, Total 7.2 g/dL (6.4-8.2); Sodium Level 141 mmol/L (136-145); Thyroid Stim Hormone (TSH) 4.25 uIU/mL (0.358-3.74); Triglycerides 130 mg/dL; Very Low Density Lipoprotein 26 mg/dL (5-40)
== END | disposition home or self-care (01) ==
PROVIDERS: PCP Preventive Medicine Occupational Medicine; Visit Provider Preventive Medicine Occupational Medicine
DX: Z00.00 Encounter for general adult medical examination without abnormal findings (principal); E03.9 Hypothyroidism, unspecified; Z12.5 Encounter for screening for malignant neoplasm of prostate; E78.2 Mixed hyperlipidemia
CPT/HCPCS: 36415; 80053; 80061; 84153; 84443; 85027; G0103

== ENCOUNTER 2022-08-07 14:30 | Outpatient (RCR) | payer MEDICARE, MEDICAID, SELFPAY ==
--- NOTE | 2022-07-24 17:19 | HP.OTEVAL_ITS ---
Patient's Visit Information PRIYANKA VELEZ is a 66 year old M, referred to Occupational Therapy by Dr. Adam Rob DO, with a diagnosis of feeding difficulty R63.30. Date of Evaluation: 07/24/22 Occupational Therapist: Desirae Wayne - Subjective Arrived on time for occupational therapy nissa. Marlon lives with Elda (came today) and [place] at their private home with a few residents and they care for him. Marlon is blind and wears hearing aides in both ears. Patient has a shunt, placed about two years ago. Elda reports Marlon has been complaining of some increased dizziness lately. Discussed importance of following up with neurologist for concern for shunt malfuntion and mentioning confusion/memory concerns as possible concern for dementia. Will have some disorientation and confusion at times. But other times he has good days. Patient also has a history of schizophrenia. Uses a bedside commode in his bedroom idependently. Uses a tub transfer bench with grab bars in the bathroom - little help for the shower. Grooming: will help with thoroughness of brushing teeth. Dressed: able to get dressed and undressed but having some difficulty with orientation. Will wear slippers during the day. will get the jonathan hose on independently - ADLs Comments: previously used weighted utensils from previous OT recommendation but this no longer works. Currently uses a spoon with foam built up to self feed or will self feed by the hands. Using rimmed plate/bowl and caregiver will describe location of food by numbers of the clock. Marlon doesn't like hands to get dirty with self-feeding. - Transfers Transfers: lift chair at home for up the stairs. Will walk when upstairs using handrails on both sides. Grab bar in bedroom at the doorway. Crawls in the bedroom and can climb in/out of bed. - In-Hand Manipulation Comments: R handed. able to use two hands to open a container with verbal cues to push down and twist. some tremors with movement and reaching away from his body is worse - Goals Goal:: Patient will demonstrate improved independence with self-feeding using adaptive utensils with reported 25% less spillage by d/c. - Rehabilitation General Assessment: Marlon arrived with one of his caregivers, Elda, for an OT evaluation for concern for feeding diffuclty. Elda reports he has more spillage and difficulty bringing food to mouth. The weighted utensils no longer work for him. In general, Marlon's mobility has decreased and his tremors have increased as a result of his parkinson's disease. Additionally his confusion and dis orientation has gotten worse. Marlon's overall motor skills were assessed during the OT evaluation and he demonstrates some tremors especially when away from his body with difficulty scooping and maintaining food on the spoon. He would benefit from a swivel spoon or a deep inset spoon to reduce spillage. His caregivers are agreeable to ordering this for him and were provided ordering information this date. Recommended follow up with neurologist for concerns of worsening dementia and reports of dizziness to assess function of the shunt. They were agreeable. Scheduled for 1 follow up OT appt to assess use of adaptive utensils and possibly work on improving his overall body awareness/tactile sensitivity to improve/maintain his independence with daily living tasks. Rehabilitation Potential: Good - Anticipated Interventions Fine Motor Coord/Nathan, ADL Training, Education re assistive Equipment - Visit Plan Frequency: 1x/Week Duration: 1 Week General Plan: scheduled 1 follow up visit in ~ 1 month to assess use of the adaptive spoons for self-feeding. At that time will discuss possibility of adding more sessions to work on Marlon's overall body awareness and stereognosis ability. TEXT: Thank you for the opportunity to evaluate your patient. For Medicare and Medicare HMO plans, please review the plan of care and approve it. It will need to be FAXED BACK to us at [phone] for Medicare purposes. Please let me know if there are questions or concerns regarding this plan of care. Physician Signature: Date:
== END 2022-08-07 19:00 | disposition home or self-care (01) ==
LOC: OT 14:30
PROVIDERS: PCP Preventive Medicine Occupational Medicine; Referring Provider Preventive Medicine Occupational Medicine; Visit Provider Preventive Medicine Occupational Medicine
DX: R63.30 Feeding difficulties, unspecified (principal); G20 Parkinson's disease
CPT/HCPCS: 97166; 97530

== ENCOUNTER → 2022-10-05 | Outpatient (CLI) | payer MEDICARE, MEDICAID, SELFPAY ==
[2022-10-05 09:51] LABS: Hematocrit 39.2 % (40-54); Hemoglobin 12.5 g/dL (13.0-16.5); Mean Corp Hgb Conc 31.9 g/dL (32-36); Mean Corpuscular Hgb 31.6 pg (27.0-32.0); Mean Platelet Vol. 9.6 fl (6.2-12.0); Platelet Count 258 K/mm3 (150-450); RBC Distribution Width CV 13.2 % (11.6-14.6); RBC Distribution Width SD 47.5 fl (35.1-43.9); Red Blood Count 3.96 M/mm3 (4.6-6.2); White Blood Count 5.2 K/mm3 (4.4-11.0)
[2022-10-05 10:21] LABS: Ammonia < 10.0 umol/L (11-32)
[2022-10-05 10:25] LABS: Valproic Acid (Depakene) Level 89 ug/mL (50-100)
[2022-10-05 10:33] LABS: Hemoglobin A1c 5.1 % (3.8-5.6)
[2022-10-05 14:22] LABS: ALB/GLOB Ratio 0.7 RATIO (0.9-2.4); AST(SGOT) 10 U/L (15-37); Alanine Aminotransfer ALT/SGPT 12 U/L (16-61); Albumin, Serum 2.9 g/dL (3.2-5.0); Alkaline Phosphatase 65 U/L (45-117); Anion Gap 2 (5-15); BUN 23 mg/dL (7-18); BUN/Creat Ratio 21.5 RATIO (10-20); Calcium,Total 8.8 mg/dL (8.5-10.1); Chloride 109 mmol/L (98-107); Creatinine, Serum 1.07 mg/dL (0.70-1.30); EST Glomerular Filtration Rate 73 mL/min (>60); Est Glom Filt Rate - Afr Amer 88 mL/min (>60); Globulin 4.1 g/dL (2.2-4.2); Glucose 88 mg/dL (74-106); Potassium 4.3 mmol/L (3.5-5.1); Prolactin 30.3 ng/mL; Sodium Level 140 mmol/L (136-145)
== END | disposition home or self-care (01) ==
LOC: LAB 09:25
PROVIDERS: PCP Preventive Medicine Occupational Medicine; Referring Provider Psychiatry & Neurology Psychiatry; Visit Provider Psychiatry & Neurology Psychiatry
DX: Z79.899 Other long term (current) drug therapy (principal)
CPT/HCPCS: 36415; 80053; 80164; 82140; 83036; 84146; 85027

== ENCOUNTER → 2022-12-14 | Outpatient (CLI) | payer MEDICARE, MEDICAID, SELFPAY ==
--- NOTE | 2022-12-14 09:32 | US_ITS ---
STUDY: ABDOMINAL ULTRASOUND - RIGHT UPPER QUADRANT REASON FOR VISIT: Male, 67 years old SKYE COLORED STOOLS/ R/O GB STONE TECHNIQUE: Ultrasound evaluation of the right upper quadrant was performed with real-time and static rios-scale imaging. TECHNICAL QUALITY: Limited. Examination limited by bowel gas. COMPARISON: None. FINDINGS: Liver: The liver measures 16.1 cm. There is increased echogenicity consistent with fatty infiltration. The bile ducts are within normal limits. There is hepatic color flow. The direction of portal flow is hepatopetal. There is no demonstrated mass lesion. Gallbladder: Normal distended gallbladder. The gallbladder wall measures 3.0 mm. There is a negative sonographic Evangelista''s sign. There is no pericholecystic fluid. There are no gallstones. Common Bile Duct (C.B.D.): The common bile duct measures 2.4 mm. Pancreas: There is nonvisualization of the pancreas due to overlying bowel gas. Right Kidney: Normal size of the right kidney. The right kidney measures 9.2 cm x 4 cm x 4.9 cm. Normal renal cortex. The right cortex measures 1.5 cm. There is no demonstrated renal mass or cyst. There is no right hydronephrosis. US/Abdomen Limited IMPRESSION: Fatty infiltration of the liver. Electronically Signed: Davy Paz MD at 12:17 EDT ,
== END | disposition home or self-care (01) ==
PROVIDERS: PCP Preventive Medicine Occupational Medicine; Referring Provider Preventive Medicine Occupational Medicine; Visit Provider Preventive Medicine Occupational Medicine
DX: R19.5 Other fecal abnormalities (principal)
CPT/HCPCS: 76705

== ENCOUNTER → 2022-12-16 | Outpatient (CLI) | payer MEDICARE, MEDICAID, SELFPAY ==
[2022-12-16 11:53] LABS: AST(SGOT) 11 U/L (15-37); Alanine Aminotransfer ALT/SGPT 17 U/L (16-61); Albumin, Serum 2.9 g/dL (3.2-5.0); Alkaline Phosphatase 61 U/L (45-117); Bilirubin, Direct 0.07 mg/dL (0.00-0.30); Globulin 3.9 g/dL (2.2-4.2); Protein, Total 6.8 g/dL (6.4-8.2)
== END | disposition home or self-care (01) ==
PROVIDERS: PCP Preventive Medicine Occupational Medicine; Referring Provider Preventive Medicine Occupational Medicine; Visit Provider Preventive Medicine Occupational Medicine
DX: R19.5 Other fecal abnormalities (principal)
CPT/HCPCS: 36415; 80076

== ENCOUNTER 2023-01-15 10:00 | Outpatient (RCR) | payer MEDICARE, MEDICAID, SELFPAY ==
--- NOTE | 2022-12-01 12:54 | HP.PTEVAL_ITS ---
Patient's Visit Information Visit Information Visit Information: PRIYANKA VELEZ is a 67 year old M referred to Physical Therapy by Dr. Adam Rob DO with a diagnosis of NORMAL PRESSURE HYDROCEPHALUS. Date of Evaluation: 12/01/22 Physical Therapist: Macey Siddiqi PT, Cert MDT Visit Plan Frequency: 2x /Week Duration: 4-6 Weeks Plan: Gait and Balance Training. Bilateral LE ROM, Stretching and Strengthening to help meet set goals. Subjective Subjective: This patient presents to Physical Therapy with his career services coordinator Elda. Present symptoms: Not walking well. Legs are weak. Present since: Slowly getting worse over the last few years. Pain Scale: Patient denies pain. Is it getting better, worse or staying the same: Getting Better. personal caregiver reports he is doing a lot better. Commenced as a result of: Shunt problems. Has been doing better since they opened the shunt about 4-6 months ago. Symptoms at onset: Difficulty getting up out of bed, getting in and out of bed, dressing himself and feeding himself along with difficulty walking. Gait: Really not walking much at all. In w/c almost all the time. C/O dizzin ess all the time. Was able to get down steps with help and across living room with walker and help when needed recently to get to basement for bad weather. Machine Stone Polisher Apprentice reports he can get himself in and out of the van by himself. Social: Lives in split level home. 6 steps up to bedroom. There is a stair lift that he uses currently. Gets around bedroom by himself from bed to recliner crawling and using grab bar. Can do steps to basement with handrail and +1 assist. PMH/Recent major surgery: legally blind. Bipolar 1 disorder GERD (gastroesophageal reflux disease) Hypothyroidism Parkinson disease Schizophrenia Intracranial shunt Objective Objective: This Patient was brought back to physical therapy today by his care- animal care giver Elda in a w/c. Elda is very helpful throughout the evaluation with patient history and communication from therapist to patient. Elda also helped to decrease patients anxiety with of transfers, standing and LE strength and ROM testing. Patient thought he was going to be seeing a therapist from a prior episode of care today and would like to follow up with her as soon as possible. Patient was pleasant and cooperative to work with throughout session but unable to control his anxiety for brief periods of time. He follows simple commands well at times but inconsistently. He responds better to a combination of verbal and tactile cueing vs verbal alone. ROM deficit: Patient has Mont[place]at LE hip flexor, HS and Gastroc-Soleus complex tightness. He is unable to fully extend montserrat Knees (approx -25 deg montserrat). Motor deficit: [place] LE Strength is grossly 3+/5 with testing and patient denies pain with testing. Transfers: Patient required +1 min assist to transfer from sit to stand and reverse safely today. Balance: Static Standing Balance is fair minus with walker. He is too anxious to try to walk today. Further Balance testing with subsequent visits will be performed. Other: Although patient denied pain throughout session today he did exhibit pain behavior with [place]at LE strength testing, with Transfers and in Standing. It is unclear to this PT if he was actually having pain or if he was just nervous. His care-animal care giver reports he has been getting very nervous with standing and walking. Balance/Special Test Scores Lower Extremity Functional Score: 22 30 Second Chair Rise Test Seconds: 1 Goals Goal 1:: Patient will be indep and safe with gait on level surfaces with hanna pervision and least assistive device x 40 feet to ease ADL's and improve activity tolerance. Goal Time Frame: 6-8 Weeks Goal 2:: Patient will complete 3 stands in 30 sec to demonstrate improved functional LE Strength Goal Time Frame: 2-4 Weeks Goal 3:: Patient will complete TUG in < 30 sec's to demonstrate improved gait stability. Goal Time Frame: 4-6 Weeks Goal 4:: Patient will be indep with [place] with help of care-givers for continued improvement once formal Physical Therapy concludes. Goal Time Frame: 8-12 Weeks Anticipated Interventions Therapeutic Exercise to Include: Strength training, Endurance training, Balance training, Flexibilty training, Gait and locomotor training and Neuromotor development For the Purpose of:: To improve muscle performance and motor function, To improve ability of physical actions for home/community/work/leisure and To improve gait and locomotor functions Text: Thank you for the opportunity to evaluate your patient. For Medicare and Medicare HMO plans, please review the plan of care and approve it. It will need to be FAXED BACK to us at [phone] for Medicare purposes. For Medicare only, by signing this I certify the plan of care. Please let me know if there are questions or concerns regarding this plan of care. Physician Signature: Date:
== END 2023-01-15 19:00 | disposition home or self-care (01) ==
LOC: PT 10:00
PROVIDERS: PCP Preventive Medicine Occupational Medicine; Referring Provider Preventive Medicine Occupational Medicine; Visit Provider Preventive Medicine Occupational Medicine
DX: R26.2 Difficulty in walking, not elsewhere classified (principal); G91.2 (Idiopathic) normal pressure hydrocephalus
CPT/HCPCS: 97110; 97116; 97162; 97530

== ENCOUNTER → 2023-04-20 | Outpatient (CLI) | payer MEDICARE, MEDICAID, SELFPAY ==
[2023-04-20 09:49] LABS: ALB/GLOB Ratio 0.7 RATIO (0.9-2.4); AST(SGOT) 11 U/L (15-37); Alanine Aminotransfer ALT/SGPT 18 U/L (16-61); Albumin, Serum 3.1 g/dL (3.2-5.0); Alkaline Phosphatase 61 U/L (45-117); Anion Gap 3 (5-15); BUN 19 mg/dL (7-18); Calcium,Total 8.9 mg/dL (8.5-10.1); Chloride 106 mmol/L (98-107); Cholesterol 184 mg/dL (200); Creatinine, Serum 1.12 mg/dL (0.70-1.30); EST Glomerular Filtration Rate 69 mL/min (>60); Est Glom Filt Rate - Afr Amer 84 mL/min (>60); Globulin 4.3 g/dL (2.2-4.2); Glucose 86 mg/dL (74-106); High Density Lipoprotein 54 mg/dL; Potassium 4.1 mmol/L (3.5-5.1); Protein, Total 7.4 g/dL (6.4-8.2); Sodium Level 142 mmol/L (136-145); Thyroid Stim Hormone (TSH) 3.13 uIU/mL (0.358-3.74); Triglycerides 146 mg/dL; Very Low Density Lipoprotein 29 mg/dL (5-40)
== END | disposition home or self-care (01) ==
PROVIDERS: PCP Preventive Medicine Occupational Medicine; Referring Provider Preventive Medicine Occupational Medicine; Visit Provider Preventive Medicine Occupational Medicine
DX: E78.2 Mixed hyperlipidemia (principal); Z12.5 Encounter for screening for malignant neoplasm of prostate; E03.9 Hypothyroidism, unspecified
CPT/HCPCS: 36415; 80053; 80061; 84443

== ENCOUNTER → 2023-06-19 | Outpatient (CLI) | payer MEDICARE, MEDICAID, SELFPAY ==
[2023-06-19 17:35] LABS: PSA,Total - Annual Screen 0.94 ng/mL (0.00-4.00)
== END | disposition home or self-care (01) ==
PROVIDERS: PCP Preventive Medicine Occupational Medicine; Referring Provider Preventive Medicine Occupational Medicine; Visit Provider Preventive Medicine Occupational Medicine
DX: Z12.5 Encounter for screening for malignant neoplasm of prostate (principal)
CPT/HCPCS: 36415; 84153; G0103

== ENCOUNTER → 2023-08-21 | Outpatient (CLI) | payer MEDICARE, MEDICAID, SELFPAY ==
[2023-08-21 09:43] LABS: Hematocrit 39.6 % (40-54); Hemoglobin 13.1 g/dL (13.0-16.5); Mean Corp Hgb Conc 33.1 g/dL (32-36); Mean Corpuscular Volume 96.8 fL (80-94); Mean Platelet Vol. 9.4 fl (6.2-12.0); Platelet Count 226 K/mm3 (150-450); RBC Distribution Width CV 12.7 % (11.6-14.6); RBC Distribution Width SD 45.2 fl (35.1-43.9); Red Blood Count 4.09 M/mm3 (4.6-6.2); White Blood Count 6.1 K/mm3 (4.4-11.0)
[2023-08-21 10:04] LABS: Hemoglobin A1c 5.2 % (3.8-5.6); Valproic Acid (Depakene) Level 95 ug/mL (50-100)
[2023-08-21 11:36] LABS: ALB/GLOB Ratio 0.8 RATIO (0.9-2.4); AST(SGOT) 12 U/L (15-37); Alanine Aminotransfer ALT/SGPT 19 U/L (16-61); Albumin, Serum 3.2 g/dL (3.2-5.0); Alkaline Phosphatase 58 U/L (45-117); Anion Gap 4 (5-15); BUN 29 mg/dL (7-18); BUN/Creat Ratio 21.6 RATIO (10-20); Calcium,Total 8.7 mg/dL (8.5-10.1); Chloride 106 mmol/L (98-107); Creatinine, Serum 1.34 mg/dL (0.70-1.30); EST Glomerular Filtration Rate 56 mL/min (>60); Est Glom Filt Rate - Afr Amer 68 mL/min (>60); Globulin 3.9 g/dL (2.2-4.2); Glucose 87 mg/dL (74-106); Potassium 3.9 mmol/L (3.5-5.1); Prolactin 47.5 ng/mL; Protein, Total 7.1 g/dL (6.4-8.2); Sodium Level 141 mmol/L (136-145)
== END | disposition home or self-care (01) ==
PROVIDERS: PCP Preventive Medicine Occupational Medicine; Referring Provider Psychiatry & Neurology Psychiatry; Visit Provider Psychiatry & Neurology Psychiatry
DX: Z79.899 Other long term (current) drug therapy (principal)
CPT/HCPCS: 36415; 80053; 80164; 82140; 83036; 84146; 85027

== ENCOUNTER 2024-01-30 22:34 | Emergency (ER) | payer MEDICARE, MEDICAID, SELFPAY ==
[2024-01-30 22:35] VITALS: BP 110/77; PULSE 75; RESP 18; TEMP 36.2; O2SAT 98
--- NOTE | 2024-01-30 23:04 | EX.ED.DYSGE1 ---
HPI History of Present Illness Chief Complaint: Poisoning Informant: patient and other (Air Conditioning Equipment Mechanic) Narrative Narrative: Patient is a 68-year-old male with history of Parkinson's disease and bipolar disorder as well as hypothyroidism. Air Conditioning Equipment Mechanic states that she was passing meds around 9 PM. She states that she received a phone call and had to put the tray with the medications down. After telling the person calling she could not speak at that time because she had to continue with her medication administration she realized that the container holding 400 mg of gabapentin was empty. She is unsure if the patient took the medication or if had fallen or was even taken by potentially the dog that is at the house. She states she looked with a pill but could not find it and therefore assuming that the patient actually took the medication which is not his own she was concern for potential medication interaction and brought him in for evaluation. Upon arrival to the ER the patient is at his baseline mental status and acting normally per janitor caretaker [facility] Medical History Schizophrenia Bipolar 1 disorder GERD (gastroesophageal reflux disease) Hypothyroidism Parkinson disease Home Medications ?Medication ?Instructions ?Recorded ?Last Taken ?Type acetaminophen 500 mg tablet 1,000 mg PO Q6H PRN pain/fever 01/26/22 Unknown History bupropion HCl 100 mg tablet 100 mg PO DAILY 01/26/22 Unknown History divalproex 500 mg tablet,extended 1,500 mg PO DAILY 01/26/22 Unknown History release 24 hr guaifenesin 100 mg/5 mL oral liquid 200 mg PO Q4H PRN Cough 01/26/22 Unknown History levothyroxine 75 mcg tablet 75 mcg PO QHS 01/26/22 Unknown History mirabegron 50 mg tablet,extended 50 mg PO DAILY 01/26/22 Unknown History release 24 hr (Myrbetriq) nirmatrelvir 300 mg (150 mg See Rx Instructions PO .COMPLEX 01/26/22 Unknown Rx x2)-ritonavir 100 mg tablet,dose #30 tabs pack (Paxlovid) omeprazole 20 mg tablet,delayed 20 mg PO DAILY 01/26/22 Unknown History release risperidone 1 mg tablet (Risperdal) 1 mg PO BREAKFAST 01/26/22 Unknown History risperidone 1 mg tablet (Risperdal) 1.5 mg PO QHS 01/26/22 Unknown History triamterene 37.5 1 tab PO DAILY 01/26/22 Unknown History mg-hydrochlorothiazide 25 mg tablet trihexyphenidyl 2 mg tablet 4 mg PO BID 01/26/22 Unknown History Allergy/AdvReac Type Severity Reaction Status Date / Time No Known Allergies Allergy Verified 01/30/24 22:39 Surgical History (Updated 01/26/22 @ 07:40 by Brianne Valencia) Intracranial shunt Social History Smoking Status: Former smoker ROS ROS ED Constitutional Constitutional ED: Denies chills or fever(s) ENT ENT ED: Denies sore throat Cardiovascular Cardiovascular: Denies chest pain Respiratory/Chest Respiratory/Chest: Denies cough or dyspnea Gastrointestinal Gastrointestinal: Denies abdominal pain, diarrhea, nausea or vomiting Genitourinary Genitourinary ED: Denies dysuria Musculoskeletal Musculoskeletal: Denies myalgias Integumentary Denies rash Neurologic Neurologic: Denies headache(s) Hematologic/Lymphatic Hematologic/Lymphatic: Denies easy bleeding or easy bruising Allergic/Immunologic Allergic/Immunologic ED: Denies mouth swelling or tongue swelling EXAM Physical Exam Const Vital Signs: 01/30/24 22:35 Temperature 97.1 F L Temperature Source Temporal Pulse Rate 75 Respiratory Rate 18 Blood Pressure 110/77 Blood Pressure Mean 88 Pulse Ox 98 Positive well nourished and well developed General Appearance ED: well developed HEENT HEENT Narrative: Normocephalic atraumatic Neck supple Resp normal respiratory effort and clear to auscultation bilaterally Resp Narrative: No nasal flaring retractions tachypnea or accessory muscle use. No signs of respiratory distress Cardio regular rate and regular rhythm Extremity Extremity Narrative: +2-3 pitting edema that is equal and symmetric bilaterally and chronic per patient and janitor caretaker Negative Homans' sign Neuro CN's II-XII intact bilaterally and no sensory deficits noted Neuro Narrative: Patient is at his baseline mental status without focal neurologic deficit Sensorium / Orientation: alert Psych mental status grossly normal Skin no rashes or lesions noted MDM MDM MDM Narrative Medical decision making narrative: Patient arrived to the ER with stable vitals. Air Conditioning Equipment Mechanic reported that he potentially took 400 mg of gabapentin around 9 PM. Is been approximately 2 hours since the potential ingestion and chart review reveals that the peak effect of gabapentin would be occurring at the 2 to 4-hour dawson and therefore I would expect to see signs and symptoms of potential ingestion or overdose. The patient did not take a overdose amount as her reported dose was only 400 mg. Further chart review was performed to check for potential interactions between his home medications and gabapentin. According to the chart review only bupropion and the triamterene could show potential respiratory depression when associated/taken with gabapentin. As the patient has a pulse ox of 98 to 100% no signs of respiratory distress and the janitor caretaker reports has been roughly 2 hours since the potential ingestion I would expect to see those changes at this time. Therefore as the patient does not have those findings I do not feel there is need to further observe the patient or perform laboratory testing. Therefore as the patient has stable vitals with a normal room air pulse ox and no signs of respiratory distress he is safe for discharge and can return to his home in the care of his janitor caretaker History & Record Review Discussion w/independent historian: Patient and Other (Air Conditioning Equipment Mechanic) Discharge Plan Triage Chief Complaint: Poisoning ED Provider: Jordan Lopez Dx/Rx/DC Orders Clinical Impression: Accidental drug ingestion, Parkinson's disease, Hypothyroidism, GERD (gastroesophageal reflux disease), Schizophrenia Instructions: ED Accidental Ingestion ... Prescriptions: No Action acetaminophen 500 mg Tablet 1,000 mg PO Q6H PRN (Reason: pain/fever) guaifenesin [Q-Tussin] 100 mg/5 mL Liquid 200 mg PO Q4H PRN (Reason: Cough) levothyroxine 75 mcg Tablet 75 mcg PO QHS bupropion HCl 100 mg Tablet 100 mg PO DAILY divalproex 500 mg Tablet Extended Release 24 Hr 1,500 mg PO DAILY triamterene-hydrochlorothiazid 37.5-25 mg Tablet 1 tab PO DAILY trihexyphenidyl 2 mg Tablet 4 mg PO BID Rx Instructions: give with food (meal/snack) risperidone [Risperdal] 1 mg Tablet 1 mg PO BREAKFAST risperidone [Risperdal] 1 mg Tablet 1.5 mg PO QHS omeprazole 20 mg Tablet,Delayed Release (Dr/Ec) 20 mg PO DAILY Myrbetriq 50 mg Tablet Extended Release 24 Hr 50 mg PO DAILY Paxlovid 300 mg (150 mg x 2)-100 mg tablets,dose pack See Rx Instructions .ROUTE .COMPLEX Qty: 30 0RF Rx Instructions: take TWO 150 mg tablets of nirmatrelvir with ONE 100 mg tablet of ritonavir twice daily for 5 days Primary Care Provider: Adam Rob Referrals: Adam Rob DO [Primary Care Provider] - Activity Restrictions/Additional Instructions: The patient is safe to take his nighttime medications as the gabapentin will not interact with them. The gabapentin could potentially lead to changes in respiration/respiratory distress when mixed with his bupropion and triamterene. However those medications were given over 12 hours ago and at this time the gabapentin would be reaching peak effect in his system and he does not have findings of respiratory distress. Therefore the patient is safe to return home take his nighttime medications and continue his normal daily pills in the morning. Print Language: Indonesian Disposition Disposition: Home, Self Care
== END 2024-01-30 23:57 | disposition home or self-care (01) ==
PROVIDERS: Emergency Provider Emergency Medicine; PCP Preventive Medicine Occupational Medicine; Visit Provider Emergency Medicine
DX: T50.901A Poisoning by unspecified drugs, medicaments and biological substances, accidental (unintentional), initial encounter (principal); G20.C Parkinsonism, unspecified; F20.9 Schizophrenia, unspecified; F31.9 Bipolar disorder, unspecified; K21.9 Gastro-esophageal reflux disease without esophagitis; Z87.891 Personal history of nicotine dependence; E03.9 Hypothyroidism, unspecified
CPT/HCPCS: 99282

== ENCOUNTER 2024-08-27 15:00 | Outpatient (RCR) | payer MEDICARE, MEDICAID, SELFPAY ==
--- NOTE | 2024-07-30 18:59 | HP.PTEVAL_ITS ---
Patient's Visit Information Visit Information Visit Information: PRIYANKA VELEZ is a 68 year old M referred to Physical Therapy by Dr. Pb Bonner MD with a diagnosis of parkinsonism. Date of Evaluation: 07/30/24 Physical Therapist: ONI Suarez Visit Plan Frequency: 2x /Week Duration: 3 Months Plan: 2X/ week or 12 weeks for progressive walking with rolling walker, sit to stand transfers, turning with a walker with working on encouraging more walking at home Subjective Subjective: He is seeing a neurologist. The neurologist said time for a tune up to get some PT. His caregiver says he is about the same. He walks 10-15 feet with rails on B sides. He has a stair lift and rides up and down the steps. Caregiver thinks Marlon can do more than what he does. He has a ramp at the house and he uses the ramp with rail on both sides but can do it but is slower than what he was. Most of the time he walks from the bed to the bathroom or in the hallway. He does do a lot of marching in place for about 10 min. He shuffles his feet with walking. From the chairlift to the table he goes in his wheelchair or down from the ramp to the van. At times she will daryl both hands and encourage him to walk to the van (he is slow and very nervous). He complains about his legs being shaky and wobbly over the weekend when he is relaxing. If he keeps up walking everyday he does not feel his legs as shaky. PD meds affect his schizo meds. He still gets the dizziness when he is standing. Objective Objective: Gait: 51 feet with rolling walker with min A and max verbal cues to keep advancing feet (his feet like to stay glued to the floor) and then another 10 feet to the wheel chair. Pt did well with counting his step to 10 as a distraction Turning 180 degrees with wheeled walker to get to a chair Sit to stand: max verbal cues for hand placement and tactile cues to lean FW to weight shift for sit to stand. LE MMT: B hip flex 4/5 B knee ext 4/5 B knee flex 4/5 Balance/Special Test Scores Lower Extremity Functional Score: 33 Goals Goal 1:: Indep caregiver supervised HEP Goal Time Frame: 8-12 Weeks Goal 2:: Be able to sit to stand X 5 in a row without having to use verbal cues for hand placement Goal Time Frame: 8-12 Weeks Goal 3:: Be able to walk 100 feet with rolling walker with fluid movement with minimal verbal cues with CGA Goal Time Frame: 8-12 Weeks Goal 4:: Be able to turn 180 degrees with bigger steps to be able to square up to the chair to sit down Goal Time Frame: 8-12 Weeks Goal 5:: Be able to walk at home from chair lift to kitchen table for meals with assit and rolling walker Rehabilitation Potential Rehabilitation Potential: Good Anticipated Interventions Patient/Client Instruction: Educate patient on: Condition and Plan of Care For the Purpose of:: To improve muscle performance and motor function, To improve ability to perform ADL's, To improve ability of physical actions for home/community/work/leisure, To improve gait and locomotor functions and To improve safety with gait Functional Training to Include: Gait training For the Purpose of:: To improve ability to perform ADL's, To increase tolerance to activity/condition/position, To improve performance and independence with A DL's, To improve gait and locomotor functions and To improve safety with gait Text: Thank you for the opportunity to evaluate your patient. For Medicare and Medicare HMO plans, please review the plan of care and approve it. It will need to be FAXED BACK to us at [phone] for Medicare purposes. For Medicare only, by signing this I certify the plan of care. Please let me know if there are questions or concerns regarding this plan of care. Physician Signature: Date:
--- NOTE | 2024-12-23 12:42 | HP.PT.NRP ---
Patient Information Patient Information: PRIYANKA VELEZ was seen in my office for initial evaluation on 07/30/24. The following Plan of Care was established for this patient: POC Established Initial Frequency: 2x /Week Initial Duration: 3 Months Anticipated Interventions Patient/Client Instruction: Educate patient on: Condition and Plan of Care For the Purpose of:: To improve muscle performance and motor function, To improve ability to perform ADL's, To improve ability of physical actions for home/community/work/leisure, To improve gait and locomotor functions and To improve safety with gait Functional Training to Include: Gait training For the Purpose of:: To improve ability to perform ADL's, To increase tolerance to activity/condition/position, To improve performance and independence with ADL's, To improve gait and locomotor functions and To improve safety with gait Last Seen Last Seen: This patient was last seen in our office 08/27/24. Pertinent comments regarding their Physical therapy will appear below: DC PT as pt has not rescheduled. At this point I will be discontinuing this patient from physical therapy. I would be happy to see this patient again in the future if found appropriate by the physician. Thank you! Jackie Kaplan, MPT Balance/Gait/Functional tests Balance/Special Test Scores Lower Extremity Functional Score: 33
== END 2024-08-27 19:00 | disposition home or self-care (01) ==
LOC: PT 15:00
PROVIDERS: PCP Preventive Medicine Occupational Medicine; Referring Provider Psychiatry & Neurology Neurology; Visit Provider Psychiatry & Neurology Neurology
DX: G21.11 Neuroleptic induced parkinsonism (principal)
CPT/HCPCS: 97110; 97116; 97162

== ENCOUNTER → 2024-10-06 | Outpatient (CLI) | payer MEDICARE, MEDICAID, SELFPAY ==
--- OUTSIDE RECORDS SUMMARY | 2024-10-06 07:29 | XMS RPT_ITS | CCD ---
Author Organization [facility] Care Team Providers Care Staker Surveying Name Role Phone ANG ROB DO Primary Care Physician [phone] JOAQUIN GUZMÁN Attending Unavailable LIANE THAPA, ANG Primary Care Unavailable ENA STUBBS MD Attending Unavailable LIANE THAPA, ANG Primary Care Unavailable CINTIA DAVIDSON, AZRA Attending Unavail able LIANE THAPA, ANG Primary Care Unavailable CINTIA DAVIDSON, AZRA Attending Unavail able LIANE THAPA, ANG Primary Care Unavailable LIANE THAPA, ANG Attending Unavailable LIANE THAPA, ANG Primary Care Unavailable JOAQUIN GUZMÁN Attending Unavailable LIANE THAPA, ANG Primary Care Unavailable LUIS MIGUEL [employer] SCIENCE TUTOR-SOFTWARE PROJECT ENGINEER, BAL Attending Unavail able LIANE , ANG Primary Care Unavailable LUIS MIGUEL [employer] SCIENCE TUTOR-SOFTWARE PROJECT ENGINEER, BAL Attending Unavail able LIANE THAPA, ANG Primary Care Unavailable JOAQUIN GUZMÁN Attending Unavailable LIANE THAPA, ANG Primary Care Unavailable Jordan Lopez Attending Unavailable Liane, Ang Primary Care Unavailable Pb Bonner Attending Unavailable Pb Bonner Referring Unavailable Ang Rob Primary Care Unavailable Medications Current Medications Medication Drug Class(es) Dates Sig (Normalized) Sig (Original) acetaminophen 500 mg oral tablet (13 sources) Start: 01-26-2022 take 1000 mg by mouth every six hours Acetaminophen Active 1000 MG PO EVERY 6 HOURS January 26, 2022 12:00am Start: 10-12-2021 take 2 tablets by [facility] every six hours as needed for headache, then take 6 tablets by mouth every twenty-four hours as needed for headache acetaminophen 500 mg oral tablet See Instructions, Give 2 500 mg tablets (1000 mg) by mouth as needed for headache, temperature above 100 degrees, or generalized body aches every 6 hours. (Not to exceed 6 tablets in 24 hours.), # 100 tab(s), 0 Refill(s), Pharmacy: [facility],... Start Date: 10/12/21 Status: Ordered Start: 02-03-2021 acetaminophen 500 mg oral tablet Dose : 1,000 mg = 2 tab(s), Oral, q6hr, PRN temperature greater than 100 F, headache, or body aches. Not to exceed 6 tablets in 24 hours., # 100 tab(s), 5 Refill(s), Pharmacy: [place] [id number], 172.7, cm, 01/26/21 9:18:00 EDT, Cecelia... Start Date: 02/03/21 Status: Ordered 12 hr buPROPion hydrochloride 100 mg extended release oral tablet (13 sources) Aminoketone Start: 05-23-2022 take 1 tablet by mouth every hour, then take 1 tablet by mouth once daily buPROPion 100 mg/12 hours (SR) oral tablet, extended release Dose : 100 mg = 1 tab(s), Oral, qDay, # 90 tab(s), 3 Refill(s), Pharmacy: [facility], 170, cm, 05/10/22 10:29:00 EST, Height, kg, 05/10/22 10:29:00 EST, Dosing Weight Start Date: 05/23/22 Status: Ordered Start: 01-26-2022 take 100 mg by mouth once tasia y Bupropion Hcl Active 100 MG PO DAILY January 26, 2022 12:00am Start: 07-06-2020 take 1 tablet by darion th every hour, then take 1 tablet by mouth once daily buPROPion 100 mg/12 hours (SR) oral tablet, extended release Dose : 100 mg = 1 tab(s), Oral, qDay, # 90 tab(s), 3 Refill(s), Pharmacy: [place] [facility] [id number], 170.2, cm, 06/02/20 10:21:00 EST, Height, kg, 06/02/20 10:21:00 EST, Dosing Weight Start Date: 07/06/20 Status: Ordered Cholestyramine Light 4 g/5 g oral powder for reconstitution (4 sources) Start: 04-28-2022 Cholestyramine Light 4 g/5 g oral powder for reconstitution See Instructions, mix one packet with 6 - 8 ounces of fluid by mouth daily, # 30 packet(s), 11 Refill(s), Pharmacy: [facility], Irritable bowel syndrome with diarrhea, 172.7, cm, 01/26/21 9:18:00 EDT, Height, kg, 03/29/22 15:14:00 EST, Dosing We... Start Date: 04/28/22 Status: Ordered ciclopirox 80 mg/ml topical solution (5 sources) Start: 09-29-2021 ciclopirox 8% topical solution Apply 1 anca, Topical, qHS, Apply to left great toenail., Apply to: affected nails, # 6.6 mL, 11 Refill(s), Pharmacy: [facility], 172.7, cm, 01/26/21 9:18:00 EDT, Height, 74.8, kg, 01/12/21 10:39:00 EDT, Dosing Weight Start Date: 09/29/21 Status: Ordered Start: 06-11-2020 ciclopirox 8% topical solution Apply 1 anca, Topical, qHS, Apply to left great toenail., Apply to: affected nails, # 6.6 mL, 5 Refill(s), Pharmacy: [facility] [place] [facility] - [id number], 170.2, cm, 06/02/20 10:21:00 EST, Height, 71.2, kg, 06/02/20 10:21:00 EST, Dosing Weight Start Date: 06/11/20 Status: Ordered DME MISCellaneous (16 sources) Start: 09-21-2021 DME MISCellane ous See Instructions, Provided 1 stair lift to help with mobility around the home, # 1 EA, 0 Refill(s), Muscle weakness Normal pressure hydrocephalus, 74.8 Start Date: 09/21/21 Status: Ordered Start: 06-15-2021 DME MISCellane ous See Instructions, Dispense 3 pairs of compression stockings, 20 to 30mmHg pressure, UAD daily while out of bed., # 3 EA, 0 Refill(s), Edema leg, 74.8 Start Date: 06/15/21 Status: Ordered Start: 04-27-2021 DME MISCellane ous See Instructions, Dispense knee-high compression stockings, 20 to 30 mmHg pressure, #2 pairs, use as directed while out of bed daily, # 2 EA, 3 Refill(s), Pharmacy: [place] [facility] [id number], Edema leg, 172.7, cm, 01/26/21 9:18:00 EDT, Height... Start Date: 04/27/21 Status: Ordered Start: 06-02-2020 DME MISCellane ous See Instructions, Dispense Boost nutritional supplement, number 180cans, 1 can p.o. twice daily, # 180 EA, 3 Refill(s), Pharmacy: [place] [id number], Weight loss, unintentional, 170.2, cm, 06/02/20 10:21:00 EST, Height, 71.2, kg, 06/02... Start Date: 06/02/20 Status: Ordered Start: 05-18-2020 DME MISCellane ous See Instructions, Dispense washable chucks pads, #6 bed size, #6 chair size, # 6 EA, 0 Refill(s), Urinary incontinence, mixed Parkinson disease, 76.6 Start Date: 05/18/20 Status: Ordered Start: 05-18-2020 DME MISCellane ous See Instructions, Dispense 1 gait belt, use as directed daily, # 1 EA, 0 Refill(s), Parkinson disease Muscle weakness, 76.6 Start Date: 05/18/20 Status: Ordered Start: 05-18-2020 DME MISCellane ous See Instructions, Dispense men's large pull-ups with liner, # 150 EA, 11 Refill(s), Urinary incontinence, mixed Parkinson disease, 76.6 Start Date: 05/18/20 Status: Ordered Start: 04-09-2020 DME MISCellane ous See Instructions, Dispense 1 bedside commode, # 1 EA, 0 Refill(s), Parkinson disease, 76.6 Start Date: 04/09/20 Status: Ordered donepezil hydrochloride 5 mg oral tablet (3 sources) Start: 09-05-2022 donepezil 5 mg oral tablet Dose : 5 mg = 1 tab(s), Oral, qHS, # 30 tab(s), 0 Refill(s) Start Date: 09/05/22 Status: Ordered guaiFENesin 20 mg/ml oral solution (13 sources) Start: 01-26-2022 take 200 mg by mouth every four hours Guaifenesin (Q-Tussin) 100 mg/5 mL Liquid Active 200 MG PO Q4H January 26, 2022 12:00am Start: 10-12-2021 GuaiFENesin DM 100 mg-10 mg/5 mL oral liquid See Instructions, PRN Cough and congestion, Give 10 mL (2 teaspoons) by mouth every 4 hours as needed for cough, secondary to common cold symptoms. Not to exceed 6 doses in 24 hours., # 240 mL, 0 Refill(s), Pharmacy: [facility], 172.7, cm, 12/30... Start Date: 10/12/21 Status: Ordered Start: 02-03-2021 GuaiFENesin DM 100 mg-10 mg/5 mL oral liquid See Instructions, PRN Cough and congestion, 10 mL Oral q4h as needed for cough due to the common cold. Not to exceed 6 doses in 24 hours, # 120 mL, 5 Refill(s), Pharmacy: [facility] [id number], 172.7, cm, 01/26/21 9:18:00 EDT, Height, kg,... Start Date: 02/03/21 Status: Ordered hydroCHLOROthiazide 25 mg / triamterene 37.5 mg oral tablet (16 sources) Potassium-sparing Diuretic, Thiazide Diuretic Start: 01-26-2022 take 1 tablet by mouth once daily Triamterene-Hydrochlorothiazid Active 1 TABLET PO DAILY January 26, 2022 12:00am Start: 09-21-2021 take 1 tablet by mouth once daily hydrochlorothiazide-triamterene 25 mg-37 .5 mg oral tablet Dose = 1 tab(s), Oral, Daily, # 90 tab(s), 3 Refill(s), Pharmacy: [facility], 170, cm, 05/10/22 10:29:00 EST, Height, kg, 05/10/22 10:29:00 EST, Dosing Weight Start Date: 06/19/22 Status: Ordered Start: 09-21-2021 hydrochlorothi azide-triamterene 25 mg-37.5 mg oral tablet 0 Refill(s) Start Date: 09/21/21 Status: Ordered Start: 08-19-2020 take 1 tablet by mouth once daily hydrochlorothiazide-triamterene 25 mg-37 .5 mg oral tablet Dose = 1 tab(s), Oral, Daily, # 90 tab(s), 3 Refill(s), Pharmacy: [place] [id number], 170.2, cm, 06/02/20 10:21:00 EST, Height, kg, 06/02/20 10:21:00 EST, Dosing Weight Start Date: 08/19/20 Status: Ordered levothyroxine sodium 0.075 mg oral tablet (13 sources) l-Thyroxine Start: 04-25-2022 End: 04-20-2023 levothyroxine 75 mcg (0.075 mg) oral tablet Dose : 75 mcg = 1 tab(s), Oral, qDay, # 90 tab(s), 3 Refill(s), Pharmacy: [facility], 172.7, cm, 01/26/21 9:18:00 EDT, Height, kg, 03/29/22 15:14:00 EST, Dosing Weight Start Date: 04/25/22 Stop Date: 04/20/23 Status: Ordered Start: 01-26-2022 take 75 ug by mouth at bedtime Levothyroxine Active 75 MCG PO AT BEDTIME January 26, 2022 12:00am Start: 05-28-2020 End: 05-23-2021 levothyroxine 75 mcg (0.075 mg) oral tablet Dose : 75 mcg = 1 tab(s), Oral, qDay, # 90 tab(s), 3 Refill(s), Pharmacy: [place] [id number], 170.2, cm, 05/26/19 10:18:00 EST, Height, kg, 12/03/19 9:20:00 EDT, Dosing Weight Start Date: 05/28/20 Stop Date: 05/23/21 Status: Ordered meclizine hydrochloride 12.5 mg oral tablet (1 source) Antiemetic Start: 03-09-2021 meclizine 12.5 mg oral tablet Dose : 12.5 mg = 1 tab(s), Oral, TID, PRN for dizziness, # 30 tab(s), 0 Refill(s) Start Date: 03/09/21 Status: Ordered 24 hr mirabegron 50 mg extended release oral tablet (14 sources) beta3-Adrenergic Agonist Start: 09-21-2021 take 1 tablet by mouth once daily Mirabegron (Myrbetriq) 50 mg Tablet Extended Release 24 Hr Active 50 MG PO DAILY January 26, 2022 12:00am Start: 08-19-2020 Myrbetriq 50 m g oral tablet, extended release Dose : 50 mg = 1 tab(s), Oral, qDay, # 90 tab(s), 3 Refill(s), Pharmacy: [facility] [id number], 170.2, cm, 06/02/20 10:21:00 EST, Height, kg, 06/02/20 10:21:00 EST, Dosing Weight Start Date: 08/19/20 Status: Ordered Nirmatrelvir-Ritonavir (8 sources) Start: 01-26-2022 Nirmatrelvir-R itonavir (Paxlovid (Eua)) 300 mg (150 mg x 2)-100 mg tablets,dose pack Active 0 PO .COMPLEX January 25, 2022 11:00pm take TWO 150 mg tablets of nirmatrelvir with ONE 100 mg tablet of ritonavir twice daily for 5 days Start: 01-26-2022 Nirmatrelvir-R itonavir (Paxlovid (Eua)) 300 mg (150 mg x 2)- 100 mg tablets,dose pack Active 0 PO .COMPLEX January 26, 2022 12:00am take TWO 150 mg tablets of nirmatrelvir with ONE 100 mg tablet of ritonavir twice daily for 5 days omeprazole 20 mg delayed release oral capsule (13 sources) Proton Pump Inhibitor Start: 07-07-2022 omeprazo le 20 mg oral delayed release capsule Dose : 20 mg = 1 cap(s), Oral, qDay, # 90 cap(s), 3 Refill(s), Pharmacy: [facility], 170, cm, 05/10/22 10:29:00 EST, Height, kg, 05/10/22 10:29:00 EST, Dosing Weight Start Date: 07/07/22 Status: Ordered Start: 01-26-2022 take 20 mg by mouth once daily Omeprazole Active 20 MG PO DAILY January 26, 2022 12:00am Start: 08-19-2020 omeprazole 20 mg oral delayed release capsule Dose : 20 mg = 1 cap(s), Oral, qDay, # 90 cap(s), 3 Refill(s), Pharmacy: [facility] [place] - [id number], 170.2, cm, 06/02/20 10:21:00 EST, Height, kg, 06/02/20 10:21:00 EST, Dosing Weight Start Date: 08/19/20 Status: Ordered risperiDONE 1 mg oral tablet (20 sources) Atypical Antipsychotic Start: 01-26-2022 take 1.5 mg by mouth at bedtime Risperidone (Risperdal) 1 mg Tablet Active 1.5 MG PO AT BEDTIME January 26, 2022 12:00am Start: 09-23-2020 risperiDONE 0. 5 mg oral tablet Dose : 0.5 mg = 1 tab(s), Oral, qPM, # 30 tab(s), 0 Refill(s) Start Date: 09/23/20 Status: Ordered Start: 11-20-2018 take 1 tablet by darion th at breakfast Risperidone (Risperdal) 1 mg Tablet Active 1 MG PO WITH BREAKFAST January 26, 2022 12:00am sulfamethoxazole 800 mg / trimethoprim 160 mg oral tablet (1 source) Dihydrofolate Reductase Inhibitor Antibacterial, Sulfonamide Antimicrobial Start: 07-13-2022 End: 07-18-2022 take 1 tablet by mouth every twelve hours sulfamethoxazole-trimethoprim 800 mg-160 mg oral tablet Dose = 1 tab(s), Oral, q12h, X 5 day(s), # 10 tab(s), 0 Refill(s), Pharmacy: [facility], 170, cm, 05/10/22 10:29:00 EST, Height, 74.5 Start Date: 07/13/22 Stop Date: 07/18/22 Status: Ordered tamsulosin hydrochloride 0.4 mg oral capsule (3 sources) alpha-Adrenergic Brenda Start: 08-22-2022 tamsulosin 0.4 mg oral capsu le Dose : 0.4 mg = 1 cap(s), Oral, qDay, # 90 cap(s), 3 Refill(s), Pharmacy: [facility], BPH with obstruction/lower urinary tract symptoms, 170, cm, 07/26/22 8:32:00 EDT, Height, kg, 07/26/22 8:32:00 EDT, Dosing Weight Start Date: 08/22/22 Status: Ordered trihexyphenidyl hydrochloride 2 mg oral tablet (13 sources) Start: 01-26-2022 take 4 mg by mouth twice daily at mealtime Trihexyphenidyl Active 4 MG PO TWICE A DAY January 26, 2022 12:00am give with food (meal/snack) Start: 11-20-2018 trihexyphenidy l 2 mg oral tablet Dose : 4 mg = 2 tab(s), Oral, BID, 0 Refill(s) Start Date: 11/20/18 Status: Ordered 24 hr divalproex sodium 500 mg extended release oral tablet (13 sources) Mood Stabilizer, Anti-epileptic Agent Start: 01-26-2022 take 1500 mg by mouth once daily Divalproex Active 1500 MG PO DAILY January 26, 2022 12:00am Start: 11-20-2018 take 3 tablets by mo ut once daily at bedtime divalproex sodium 500 mg oral tablet, extended release 3 tablets, Oral, qHS, 0 Refill(s) Start Date: 11/20/18 Status: Ordered Problems Active Problems Problem Classification Problem Date Documented Date Episodic/Chronic Anxiety disorders (10 sources) Anxiety disorder; Translations: [Obsessive-compulsive disorder] 12-03-2019 Chronic Blindness and vision defects (13 sources) Blindness - both eyes; Translations: [Blindness AND/OR vision impairment level] 11-20-2018 Chronic Deficiency and other anemia (5 sources) Anemia 03-09-2021 Episodic Disorders of lipid metabolism (5 sources) Mixed hyperlipidemia 09-09-2020 Chronic Comment on above: no meds Esophageal disorders (5 sources) Gastroesophageal reflux disease 11-20-2018 Chronic Fluid and electrolyte disorders (8 sources) Acute hyponatremia; Translations: [Hypo-osmolality and hyponatremia] 02-03-2022 Episodic Genitourinary symptoms and ill-defined conditions (5 sources) Mixed urinary incontinence 05-18-2020 Chronic Hyperplasia of prostate (6 sources) Benign prostatic hyperplasia; Translations: [Benign prostatic hypertrophy with outflow obstruction] 11-20-2018 Chronic Malaise and fatigue (8 sources) Asthenia; Translations: [Weakness] 02-03-2022 Episodic Mood disorders (10 sources) Bipolar I disorder; Translations: [Depressive disorder] 11-20-2018 Chronic Mycoses (1 source) Onychomycosis 03-09-2021 Episodic Neoplasms of unspecified nature or uncertain behavior (5 sources) Neoplasm of skin of scalp 03-09-2021 Episod ic Osteoarthritis (5 sources) Osteoarthritis 11-20-2018 Chronic Other connective tissue disease (5 sources) Muscle weakness 11-20-2018 Episodic Other gastrointestinal disorders (4 sources) Irritable bowel syndrome with diarrhea 12-14-2021 Chronic Other nervous system disorders (5 sources) Normal pressure hydrocephalus 07-26-2020 Chronic Other nervous system disorders (2 sources) (Idiopathic) normal pressure hydrocephalus; Translations: [(Idiopathic) normal pressure hydrocephalus] Onset: 03-13-20 Chronic Other nutritional; endocrine; and metabolic disorders (5 sources) Unintentional weight loss 06-02-2020 Episod ic Other nutritional; endocrine; and metabolic disorders (4 sources) Feeding problem 03-29-2022 Episodic Residual codes; unclassified (5 sources) Obstructive sleep apnea syndrome 04-09-2020 Chronic Residual codes; unclassified (5 sources) Edema of lower extremity 05-26-2019 Episodi c Residual codes; unclassified (5 sources) FH: premature coronary heart disease 05-26-2019 Episodic Residual codes; unclassified (4 sources) Immunization due 05-10-2022 Episodic Residual codes; unclassified (3 sources) Clouded consciousness 09-05-2022 Episodic Residual codes; unclassified (3 sources) Ventriculoperitoneal shunt in situ 08-18-2022 Episodic Schizophrenia and other psychotic disorders (5 sources) Schizophrenia 05-26-2019 Chronic Thyroid disorders (5 sources) Hypothyroidism 05-26-2019 Chronic Unclassified (9 sources) Patient encounter status 12-03-2019 Viral infection (8 sources) Disease caused by 2019-nCoV; Translations: [COVID-19] 01-26-2022 Episodic Past or Other Problems Problem Classification Problem Date Documented Da te Episodic/Chronic Poisoning by other medications and drugs (1 source) Poisoning by unspecified drugs, medicaments and biological substances, accidental (unintentional), initial encounter; Translations: [Poisoning by unspecified drugs, medicaments and biological substances, accidental (unintentional), initial encounter] Onset: 02-21-2024 Episodic Urinary tract infections (2 sources) Urinary tract infection, site not specified; Translations: [Urinary tract infection, site not specified] Onset: 07-13-2022 Episodic Results Test Name Value Interpretation Reference Range Facility Inital Evaluation (1) - PTon 07-30-2024 Inital Evaluation (1) - PT [facility] [address] [place] [address] / REHABILITATION SERVICES INITIAL EVALUATION MR#: [id number] Acct: [id number] Name: PRIYANKA VELEZ Rep #: [id number] : 1955 68 From: Jackie BUNN Referring Dr.: Dr. Pb Bonner MD Status: REG RCR Insurance: RR MEDICARE MEDICAID CROSSOVER Patient's Visit Information Visit Information Visit Information: PRIYANKA VELEZ is a 68 year old M referred to Physical Therapy by Dr. Pb Bonner MD with a diagnosis of parkinsonism. Date of Evaluation: 07/30/24 Physical Therapist: ONI Suarez Visit Plan Frequency: 2x /Week Duration: 3 Months Plan: 2X/ week or 12 weeks for progressive walking with rolling walker, sit to stand transfers, turning with a walker with working on encouraging more walking at home Subjective Subjective: He is seeing a neurologist. The neurologist said time for a tune up to get some PT. His caregiver says he is about the same. He walks 10-15 feet with rails on B sides. He has a stair lift and rides up and down the steps. Caregiver thinks Marlon can do more than what he does. He has a ramp at the house and he uses the ramp with rail on both sides but can do it but is slower than what he was. Most of the time he walks from the bed to the bathroom or in the hallway. He does do a lot of marching in place for about 10 min. He shuffles his feet with walking. From the chairlift to the table he goes in his wheelchair or down from the ramp to the van. At times she will daryl both hands and encourage him to walk to the van (he is slow and very nervous). He complains about his legs being shaky and wobbly over the weekend when he is relaxing. If he keeps up walking everyday he does not feel his legs as shaky. PD meds affect his schizo meds. He still gets the dizziness when he is standing. Objective Objective: Gait: 51 feet with rolling walker with min A and max verbal cues to keep advancing feet (his feet like to stay glued to the floor) and then another 10 feet to the wheel chair. Pt did well with counting his step to 10 as a distraction Turning 180 degrees with wheeled walker to get to a chair Sit to stand: max verbal cues for hand placement and tactile cues to lean FW to weight shift for sit to stand. LE MMT: B hip flex 4/5 B knee ext 4/5 B knee flex 4/5 Balance/Special Test Scores Lower Extremity Functional Score: 33 Goals Goal 1:: Indep caregiver supervised HEP Goal Time Frame: 8-12 Weeks Goal 2:: Be able to sit to stand X 5 in a row without having to use verbal cues for hand placement Goal Time Frame: 8-12 Weeks Goal 3:: Be able to walk 100 feet with rolling walker with fluid movement with minimal verbal cues with CGA Goal Time Frame: 8-12 Weeks Goal 4:: Be able to turn 180 degrees with bigger steps to be able to square up to the chair to sit down Goal Time Frame: 8-12 Weeks Goal 5:: Be able to walk at home from chair lift to kitchen table for meals with assit and rolling walker Rehabilitation Potential Rehabilitation Potential: Good Anticipated Interventions Patient/Client Instruction: Educate patient on: Condition and Plan of Care For the Purpose of:: To improve muscle performance and motor function, To improve ability to perform ADL's, To improve ability of physical actions for home/community/work/leisur e, To improve gait and locomotor functions and To improve safety with gait Functional Training to Include: Gait training For the Purpose of:: To improve ability to perform ADL's, To increase tolerance to activity/condition/positio n, To improve performance and independence with ADL's, To improve gait and locomotor functions and To improve safety with gait Text: Thank you for the opportunity to evaluate your patient. For Medicare and Medicare HMO plans, please review the plan of care and approve it. It will need to be FAXED BACK to us at [phone] for Medicare purposes. For Medicare only, by signing this I certify the plan of care. Please let me know if there are questions or concerns regarding this plan of care. Physician Signature: Date: 07/30/24 1859 CC: Dr. Pb Bonner MD; Dr. Ang Rob DO Signed Normal [facility] Emergency Department Summary on 01-30-2024 Emergency Department Summary [facility] Medical Records Department [address] [place] [address] Emergency Department Summary 01/30/24 MR#: [id number] Acct: [id number] Name: PRIYANKA VELEZ Rep #: [id number] : 1955 68 From: Jordan Lopez DO PCP: Dr. Ang Rob DO Status:PRE ER Location: ED HPI History of Present Illness Chief Complaint: Poisoning Informant: patient and other (Materials Scheduler) Narrative Narrative: Patient is a 68-year-old male with history of Parkinson's disease and bipolar disorder as well as hypothyroidism. Materials Scheduler states that she was passing meds around 9 PM. She states that she received a phone call and had to put the tray with the medications down. After telling the person calling she could not speak at that time because she had to continue with her medication administration she realized that the container holding 400 mg of gabapentin was empty. She is unsure if the patient took the medication or if had fallen or was even taken by potentially the dog that is at the house. She states she looked with a pill but could not find it and therefore assuming that the patient actually took the medication which is not his own she was concern for potential medication interaction and brought him in for evaluation. Upon arrival to the ER the patient is at his baseline mental status and acting normally per pile driver operator helper [facility] Medical History Schizophrenia Bipolar 1 disorder GERD (gastroesophageal reflux disease) Hypothyroidism Parkinson disease Home Medications ???Medication ???Instructions ???Recorded ???Last Taken ???Type acetaminophen 500 mg tablet 1,000 mg PO Q6H PRN pain/fever 01/26/22 Unknown History bupropion HCl 100 mg tablet 100 mg PO DAILY 01/26/22 Unknown History divalproex 500 mg tablet,extended 1,500 mg PO DAILY 01/26/22 Unknown History release 24 hr guaifenesin 100 mg/5 mL oral liquid 200 mg PO Q4H PRN Cough 01/26/22 Unknown History levothyroxine 75 mcg tablet 75 mcg PO QHS 01/26/22 Unknown History mirabegron 50 mg tablet,extended 50 mg PO DAILY 01/26/22 Unknown History release 24 hr (Myrbetriq) nirmatrelvir 300 mg (150 mg See Rx Instructions PO .COMPLEX 01/26/22 Unknown Rx x2)-ritonavir 100 mg tablet,dose #30 tabs pack (Paxlovid) omeprazole 20 mg tablet,delayed 20 mg PO DAILY 01/26/22 Unknown History release risperidone 1 mg tablet (Risperdal) 1 mg PO BREAKFAST 01/26/22 Unknown History risperidone 1 mg tablet (Risperdal) 1.5 mg PO QHS 01/26/22 Unknown History triamterene 37.5 1 tab PO DAILY 01/26/22 Unknown History mg-hydrochlorothiazide 25 mg tablet trihexyphenidyl 2 mg tablet 4 mg PO BID 01/26/22 Unknown History Allergy/AdvReac Type Severity Reaction Status Date / Time No Known Allergies Allergy Verified 01/30/24 22:39 Surgical History (Updated 01/26/22 @ 07:40 by Joaquin Valencia) Intracranial shunt Social History Smoking Status: Former smoker ROS ROS ED Constitutional Constitutional ED: Denies chills or fever(s) ENT ENT ED: Denies sore throat Cardiovascular Cardiovascular: Denies chest pain Respiratory/Chest Respiratory/Chest: Denies cough or dyspnea Gastrointestinal Gastrointestinal: Denies abdominal pain, diarrhea, nausea or vomiting Genitourinary Genitourinary ED: Denies dysuria Musculoskeletal Musculoskeletal: Denies myalgias Integumentary Denies rash Neurologic Neurologic: Denies headache(s) Hematologic/Lymphatic Hematologic/Lymphatic: Denies easy bleeding or easy bruising Allergic/Immunologic Allergic/Immunologic ED: Denies mouth swelling or tongue swelling EXAM Physical Exam Const Vital Signs: 01/30/24 22:35 Temperature 97.1 F L Temperature Source Temporal Pulse Rate 75 Respiratory Rate 18 Blood Pressure 110/77 Blood Pressure Mean 88 Pulse Ox 98 Positive well nourished and well developed General Appearance ED: well developed HEENT HEENT Narrative: Normocephalic atraumatic Neck supple Resp normal respiratory effort and clear to auscultation bilaterally Resp Narrative: No nasal flaring retractions tachypnea or accessory muscle use. 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 Normal [facility] Basophil percentageOrdered B y: Susan Pizarro on 08-21-2023 Ammonia (P) [Moles/Vol] 23.0 umol/L 11-32 [facility] Bilirubin [Mass/Vol] 0.40 mg/dL 0.20-1.00 [facility] Comment on above: For patients on eltr ombopag therapy, use of Dimension [place] TBIL is not recommended. Chloride [Moles/Vol] 106 mmol/L 98-107 [facility] Glucose [Mass/Vol] 87 mg/dL 74-106 [facility] Hemoglobin (Bld) [Mass/Vol] 13.1 g/dL 13.0-16.5 [facility] Potassium [Moles/Vol] 3.9 mmol/L 3.5-5.1 [facility] Protein [Mass/Vol] 7.1 g/dL 6.4-8.2 [facility] Sodium [Moles/Vol] 141 mmol/L 136-145 [facility] WBC (Bld) [#/Vol] 6.1 10*3/uL 4.4-11.0 [facility] Determination of erythrocyte mean corpuscular volume (MCV)Ordered By: Susan Pizarro on 08-21-2023 MCV (RBC) [Entitic vol] 96.8 fL 80-94 [facility] Erythrocyte distribution wid th ratioOrdered By: Susan Pizarro on 08-21-2023 Erythrocyte distribution width (RBC) [Ratio] 12.7 % 11.6-14.6 [facility] Erythrocyte distribution wid th standard deviationOrdered By: Susan Pizarro on 08-21-2023 Erythrocyte distribution width (RBC) [Entitic vol] 45.2 fL 35.1-43.9 [facility] Hematocrit Auto (Bld) [Volum e fraction]Ordered By: Susan Pizarro on 08-21-2023 Hematocrit (Bld) [Volume fraction] 39.6 % 40-54 [facility] Laboratory - Chemistry and C hemistry - challengeOrdered By: [facility] Pizar[facility] on 08-21-2023 Albumin/Globulin [Mass ratio] 0.8 {ratio} 0.9-2.4 [facility] ALP [Catalytic activity/Vol] 58 U/L 45-117 [facility] ALT [Catalytic activity/Vol] 19 U/L 16-61 [facility] CO2 [Moles/Vol] 31.0 mmol/L 21.0-32.0 [facility] Globulin (S) [Mass/Vol] 3.9 g/dL 2.2-4.2 [facility] Urea nitrogen/Creatinine [Mass ratio] 21.6 mg/mg 10-20 [facility] Laboratory - Hematology and Cell countsOrdered By: Susan Pizarro on 08-21-2023 MCH (RBC) [Entitic mass] 32.0 pg 27.0-32.0 [facility] MCHC (RBC) [Mass/Vol] 33.1 g/dL 32-36 [facility] Platelet mean volume (Bld) [Entitic vol] 9.4 fL 6.2-12.0 [facility] Platelets (Bld) [#/Vol] 226 10*3/uL 150-450 [facility] No Panel InformationOrdered By: Susan Pizarro on 08-21-2023 Estimated GFR (MDRD) Amer 68 mL/min >60 [facility] Comment on above: GFR Calc Estimated GFR (MDRD) Non-Af Amer 56 mL/min >60 [facility] Comment on above: Non- GFR Calc Prolactin 47.5 ng/mL [facility] Comment on above: NORMAL REFERENCE RAN GES FEMALE NON- 2.2 - 30.3 ng/mL 8.1 - 347.6 ng/mL POST-MENOPAUSAL 0.7 - 31.5 ng/mL MALE 2.5 - 17.4 ng/mL Valproic Acid (Depakene) Level 95 ug/mL 50-100 [facility] RBC Auto (Bld) [#/Vol]Ordere d By: Susan Pizarro on 08-21-2023 RBC (Bld) [#/Vol] 4.09 10*6/uL 4.6-6.2 [facility] Serum or plasma calcium los urement (mass/volume)Ordered By: Susan Pizarro on 08-21-2023 Calcium [Mass/Vol] 8.7 mg/dL 8.5-10.1 [facility] Serum or plasma creatinine m easurement (mass/volume)Ordered By: Susan Pizarro on 08-21-2023 Creatinine [Mass/Vol] 1.34 mg/dL 0.70-1.30 [facility] Comment on above: The validity of the calculated GFR & GFRAA in patients over 70 years has not been determined. Clinical correlation is essential. Serum or plasma urea nitroge n measurement (mass/volume)Ordered By: Susan Pizarro on 08-21-2023 Urea nitrogen [Mass/Vol] 29 mg/dL 7-18 [facility] Thin prep Papanicolaou smear with manual screeningOrdered By: Susan Pizarro on 08-21-2023 Thin prep Papanicolaou smear with manual screening 3.2 g/dL 3.2-5.0 [facility] Thin prep Papanicolaou smear with manual screening 12 U/L 15-37 [facility] Thin prep Papanicolaou smear with manual screening 4 5-15 [facility] Whole blood hemoglobin A1c/t otal hemoglobin ratio (mass fraction)Ordered By: Susan Pizarro on 08-21-2023 HbA1c (Bld) [Mass fraction] 5.2 % 3.8-5.6 [facility] Comment on above: Normal < 5.7 % Predi abetic 5.7 - 6.4 % Diabetic >or= 6.5 % Please note range changes. No Panel InformationOrdered By: Ang Rob on 06-19-2023 Prostate Specific Antigen Screen 0.94 ng/mL 0.00-4.00 [facility] Comment on above: This test was perfor med using the TPSA assay method [facility] the[facility]. Values obtained with differentassay methods cannot be used interchangably.When changing PSA assays in the course of monitoring apatient, additional sequential testing should be carriedout to confirm baseline values. Basophil percentageOrdered B y: Ang Rob on 04-20-2023 Bilirubin [Mass/Vol] 0.30 mg/dL 0.20-1.00 [facility] Comment on above: For patients on eltr ombopag therapy, use of Dimension [place] TBIL is not recommended. Chloride [Moles/Vol] 106 mmol/L 98-107 [facility] Cholesterol [Mass/Vol] 184 mg/dL <200 [facility] Comment on above: <200 mg/dL Desirable 200-240 mg/dL Borderline >240 mg/dL High Risk Glucose [Mass/Vol] 86 mg/dL 74-106 [facility] Potassium [Moles/Vol] 4.1 mmol/L 3.5-5.1 [facility] Protein [Mass/Vol] 7.4 g/dL 6.4-8.2 [facility] Sodium [Moles/Vol] 142 mmol/L 136-145 [facility] Triglyceride [Mass/Vol] 146 mg/dL <199 [facility] Comment on above: The drugs N-Acetylcy steine and Metamizole may falsely depress this assay.Serum Triglycerides Reference Interval Normal <150 mg/dL Borderline high 150 - 199 mg/dL High 200 - 499 mg/dL Very High > or = 500 mg/dL Laboratory - Chemistry and C hemistry - challengeOrdered By: Ang Rob on 04-20-2023 ALP [Catalytic activity/Vol] 61 U/L 45-117 [facility] ALT [Catalytic activity/Vol] 18 U/L 16-61 [facility] CO2 [Moles/Vol] 33.0 mmol/L 21.0-32.0 [facility] Globulin (S) [Mass/Vol] 4.3 g/dL 2.2-4.2 [facility] Urea nitrogen/Creatinine [Mass ratio] 17.0 mg/mg 10-20 [facility] No Panel InformationOrdered By: Ang Rob on 04-20-2023 Estimated GFR (MDRD) Amer 84 mL/min >60 [facility] Comment on above: GFR Calc Estimated GFR (MDRD) Non-Af Amer 69 mL/min >60 [facility] Comment on above: Non- GFR Calc Thyroid Stimulating Hormone (TSH) 3.13 uIU/mL 0.358-3.74 [facility] Serum or plasma albumin los urement (mass/volume)Ordered By: Ang Rob on 04-20-2023 Albumin [Mass/Vol] 3.1 g/dL 3.2-5.0 [facility] Serum or plasma albumin/glob ulin mass ratioOrdered By: Ang Rbo on 04-20-2023 Albumin/Globulin [Mass ratio] 0.7 {ratio} 0.9-2.4 [facility] Serum or plasma calcium los urement (mass/volume)Ordered By: Ang Rob on 04-20-2023 Calcium [Mass/Vol] 8.9 mg/dL 8.5-10.1 [facility] Serum or plasma cholesterol in HDL measurement (mass/volume)Ordered By: Ang Rob on 04-20-2023 Cholesterol in HDL [Mass/Vol] 54 mg/dL >40 [facility] Comment on above: The drugs N-Acetylcy steine and Metamizole may falsely depress this assay. Reference Range HDL <40 mg/dL Low HDL Cholesterol HDL >or= 60 mg/dL High HDL Cholesterol Serum or plasma cholesterol in VLDL measurement (mass/volume)Ordered By: Ang Rob on 04-20-2023 Cholesterol in VLDL [Mass/Vol] 29 mg/dL 5-40 [facility] Serum or plasma creatinine m easurement (mass/volume)Ordered By: Ang Rob on 04-20-2023 Creatinine [Mass/Vol] 1.12 mg/dL 0.70-1.30 [facility] Comment on above: The validity of the calculated GFR & GFRAA in patients over 70 years has not been determined. Clinical correlation is essential. Serum or plasma low density lipoprotein (LDL) cholesterol measurement (mass/volume)Ordered By: Ang Rob on 04-20-2023 Cholesterol in LDL [Mass/Vol] 101 mg/dL 0-130 [facility] Serum or plasma urea nitroge n measurement (mass/volume)Ordered By: Ang Rob on 04-20-2023 Urea nitrogen [Mass/Vol] 19 mg/dL 7-18 [facility] Thin prep Papanicolaou smear with manual screeningOrdered By: Ang Chy on 04-20-2023 Thin prep Papanicolaou smear with manual screening 11 U/L 15-37 [facility] Thin prep Papanicolaou smear with manual screening 3 5-[address] [facility] [address] HEAD OR BRAIN W/O CONTRAS Ton 02-06-2023 CT HEAD OR BRAIN W/O CONTRAST ORIGINAL HISTORY: Hydrocephalus, dizziness, tiredness COMPARISON: 02 October 2022 TECHNIQUE: Routine non-contrast head CT with sagittal and coronal reconstructions This exam was performed according to our departmental dose optimization program, and includes the following measures where applicable: automated exposure control, adjustment of the mAs and/or kVp according to patient size and/or exam, and an iterative reconstruction algorithm. FINDINGS: There is a ventriculostomy with right parietal approach in tip at the anterior septum. There is mild to moderate ventriculomegaly, disproportionate to sulcal with. There are no abnormal intra or extra-axial fluid collections. There is mild irregular decreased attenuation in the cerebral white matter; casillas-white matter differentiation is maintained. Both globes are shrunken and partly calcified. IMPRESSION: No significant change in ventricle size and no significant change overall. Interpreted by: Joe Flores MD Preliminary Report By: Joe Flores MD Electronically signed By Joe Flores MD Dictated Date: 02/06/2023 11:37:28 AM Prelim Date: 02/06/2023 11:39:29 AM Sign Date: 02/06/2023 11:39:29 AM Ordering Provider: BAL BOLANOS [facility] ([place]) Basophil percentageOrdered B y: Ang Rob on 12-16-2022 Bilirubin [Mass/Vol] 0.20 mg/dL 0.20-1.00 [facility] Comment on above: For patients on eltr ombopag therapy, use of Dimension [place] TBIL is not recommended. Protein [Mass/Vol] 6.8 g/dL 6.4-8.2 [facility] Direct bilirubinOrdered By: Ang Rob on 12-16-2022 Bilirubin.direct [Mass/Vol] 0.07 mg/dL 0.00-0.30 [facility] Laboratory - Chemistry and C hemistry - challengeOrdered By: Ang Rob on 12-16-2022 ALP [Catalytic activity/Vol] 61 U/L 45-117 [facility] ALT [Catalytic activity/Vol] 17 U/L 16-61 [facility] Globulin (S) [Mass/Vol] 3.9 g/dL 2.2-4.2 [facility] Serum or plasma albumin los urement (mass/volume)Ordered By: Ang Rob on 12-16-2022 Albumin [Mass/Vol] 2.9 g/dL 3.2-5.0 [facility] Thin prep Papanicolaou smear with manual screeningOrdered By: Ang Rob on 12-16-2022 Thin prep Papanicolaou smear with manual screening 11 U/L 15-37 [facility] Basophil percentageOrdered B y: Susan Pizarro on 10-05-2022 Basophil percentage < 10.0 umol/L 11-32 [facility] Bilirubin [Mass/Vol] 0.30 mg/dL 0.20-1.00 [facility] Comment on above: For patients on eltr ombopag therapy, use of Dimension [place] TBIL is not recommended. Chloride [Moles/Vol] 109 mmol/L 98-107 [facility] Glucose [Mass/Vol] 88 mg/dL 74-106 [facility] Potassium [Moles/Vol] 4.3 mmol/L 3.5-5.1 [facility] Protein [Mass/Vol] 7.0 g/dL 6.4-8.2 [facility] Sodium [Moles/Vol] 140 mmol/L 136-145 [facility] WBC (Bld) [#/Vol] 5.2 10*3/uL 4.4-11.0 [facility] Blood erythrocytes count (nu mber/volume)Ordered By: Susan Pizarro on 10-05-2022 RBC (Bld) [#/Vol] 3.96 10*6/uL 4.6-6.2 [facility] Blood hemoglobin measurement (mass/volume)Ordered By: Susan Pizarro on 10-05-2022 Hemoglobin (Bld) [Mass/Vol] 12.5 g/dL 13.0-16.5 [facility] Blood platelet mean volumeOr dered By: Susan Pizarro on 10-05-2022 Platelet mean volume (Bld) [Entitic vol] 9.6 fL 6.2-12.0 [facility] Determination of erythrocyte mean corpuscular volume (MCV)Ordered By: Susan Pizarro on 10-05-2022 MCV (RBC) [Entitic vol] 99.0 fL 80-94 [facility] Hematocrit Auto (Bld) [Volum e fraction]Ordered By: Susan Pizarro on 10-05-2022 Hematocrit (Bld) [Volume fraction] 39.2 % 40-54 [facility] Laboratory - Chemistry and C hemistry - challengeOrdered By: [facility] P[facility] on 10-05-2022 ALP [Catalytic activity/Vol] 65 U/L 45-117 [facility] ALT [Catalytic activity/Vol] 12 U/L 16-61 [facility] CO2 [Moles/Vol] 29.0 mmol/L 21.0-32.0 [facility] Globulin (S) [Mass/Vol] 4.1 g/dL 2.2-4.2 [facility] Urea nitrogen/Creatinine [Mass ratio] 21.5 mg/mg 10-20 [facility] Laboratory - Hematology and Cell countsOrdered By: Susan Pizarro on 10-05-2022 Erythrocyte distribution width (RBC) [Entitic vol] 47.5 fL 35.1-43.9 [facility] Erythrocyte distribution width (RBC) [Ratio] 13.2 % 11.6-14.6 [facility] MCH (RBC) [Entitic mass] 31.6 pg 27.0-32.0 [facility] MCHC Auto (RBC) [Mass/Vol]Or dered By: Susan Pizarro on 10-05-2022 MCHC (RBC) [Mass/Vol] 31.9 g/dL 32-36 [facility] No Panel InformationOrdered By: Susan Pizarro on 10-05-2022 Estimated GFR (MDRD) Amer 88 mL/min >60 [facility] Comment on above: GFR Calc Estimated GFR (MDRD) Non-Af Amer 73 mL/min >60 [facility] Comment on above: Non- GFR Calc Valproic Acid (Depakene) Level 89 ug/mL 50-100 [facility] Platelets bldOrdered By: Eliu Pizarro on 10-05-2022 Platelets (Bld) [#/Vol] 258 10*3/uL 150-450 [facility] Serum or plasma albumin los urement (mass/volume)Ordered By: Susan Pizarro on 10-05-2022 Albumin [Mass/Vol] 2.9 g/dL 3.2-5.0 [facility] Serum or plasma albumin/glob ulin mass ratioOrdered By: Susan Pizarro on 10-05-2022 Albumin/Globulin [Mass ratio] 0.7 {ratio} 0.9-2.4 [facility] Serum or plasma calcium los urement (mass/volume)Ordered By: Susan Pizarro on 10-05-2022 Calcium [Mass/Vol] 8.8 mg/dL 8.5-10.1 [facility] Serum or plasma creatinine m easurement (mass/volume)Ordered By: Susan Pizarro on 10-05-2022 Creatinine [Mass/Vol] 1.07 mg/dL 0.70-1.30 [facility] Comment on above: The validity of the calculated GFR & GFRAA in patients over 70 years has not been determined. Clinical correlation is essential. Serum or plasma prolactin me asurement (mass/volume)Ordered By: Susan Pizarro on 10-05-2022 Prolactin [Mass/Vol] 30.3 ng/mL [facility] Comment on above: NORMAL REFERENCE RAN GES FEMALE NON- 2.2 - 30.3 ng/mL 8.1 - 347.6 ng/mL POST-MENOPAUSAL 0.7 - 31.5 ng/mL MALE 2.5 - 17.4 ng/mL Serum or plasma urea nitroge n measurement (mass/volume)Ordered By: Susan Pizarro on 10-05-2022 Urea nitrogen [Mass/Vol] 23 mg/dL 7-18 [facility] Thin prep Papanicolaou smear with manual screeningOrdered By: Susan Pizarro on 10-05-2022 Thin prep Papanicolaou smear with manual screening 10 U/L 15-37 [facility] Thin prep Papanicolaou smear with manual screening 2 5-15 [facility] Whole blood hemoglobin A1c/t otal hemoglobin ratio (mass fraction)Ordered By: Susan Pizarro on 10-05-2022 HbA1c (Bld) [Mass fraction] 5.1 % 3.8-5.6 [facility] Comment on above: Normal < 5.7 % Predi abetic 5.7 - 6.4 % Diabetic >or= 6.5 % Please note range changes. CT HEAD OR BRAIN W/O CONTRAS Ton 10-02-2022 CT HEAD OR BRAIN W/O CONTRAST ORIGINAL HISTORY: Dizziness, gait disturbance, shunt COMPARISON: 12 Sep 2022 TECHNIQUE: Routine non-contrast head CT with sagittal and coronal reconstructions This exam was performed according to our departmental dose optimization program, and includes the following measures where applicable: automated exposure control, adjustment of the mAs and/or kVp according to patient size and/or exam, and an iterative reconstruction algorithm. FINDINGS: There is a ventriculostomy catheter with right occipital approach in tip near the anterior septum. There is otherwise mild to moderate ventriculomegaly, disproportionate to sulcal with. There are no abnormal intra or extra-axial fluid collections. Casillas-white matter differentiation is maintained. IMPRESSION: No significant change in ventricle size and no significant change overall. Interpreted by: Joe Flores MD Preliminary Report By: Joe Flores MD Electronically signed By Joe Flores MD Dictated Date: 10/02/2022 12:24:54 PM Prelim Date: 10/02/2022 12:27:14 PM Sign Date: 10/02/2022 12:27:14 PM Ordering Provider: BAL BOLANOS [facility] ([place]) XR SHUNTOGRAMon 09-15-2022 XR SHUNTOGRAM ORIGINAL EXAMINATION: SHUNT SERIES 09/12/2022 1:54 pm COMPARISON: Same day CT head. HISTORY: ORDERING SYSTEM PROVIDED HISTORY: Reason for Exam: NPH, h/o RETURN CHECKER shunt, increasing confusion, gait abnormality, assessment of shunt integrity FINDINGS: Right parietooccipital shunt placement is visualized. The intracranial aspects of the shunt are intact. Shunt valve connection appears normal. The PA shunt is seen crossing midline of the anterior chest wall without discontinuity. RETURN CHECKER shunt is than seen within the abdomen with the distal tip seen within the right lower quadrant/right hemipelvis. No discontinuity is seen. Bony degenerative changes are otherwise seen. No acute process is noted. IMPRESSION: RETURN CHECKER shunt is intact without evidence of discontinuity. Interpreted by: Andrea Arredondo MD Preliminary Report By: Andrea Arredondo MD Electronically signed By Andrea Arredondo MD Dictated Date: 09/15/2022 9:48:50 AM Prelim Date: 09/15/2022 9:51:27 AM Sign Date: 09/15/2022 9:51:27 AM Ordering Provider: [facility] ([place]) CT HEAD OR BRAIN W/O CONTRAS Ton 09-13-2022 CT HEAD OR BRAIN W/O CONTRAST ORIGINAL HISTORY: Hydrocephalus, shunt COMPARISON: 14 February 2021 TECHNIQUE: Routine non-contrast head CT with sagittal and coronal reconstructions This exam was performed according to our departmental dose optimization program, and includes the following measures where applicable: automated exposure control, adjustment of the mAs and/or kVp according to patient size and/or exam, and an iterative reconstruction algorithm. FINDINGS: There is a ventriculostomy with right parietal approach in tip near the anterior septum. There is moderate ventriculomegaly. There are no abnormal intra or extra-axial fluid collections. There is mild irregular decreased attenuation in the cerebral white matter; casillas-white matter differentiation is maintained. IMPRESSION: No significant change in ventricle size and no significant change overall. Interpreted by: Joe Flores MD Preliminary Report By: Joe Flores MD Electronically signed By Joe Flores MD Dictated Date: 09/13/2022 8:56:20 AM Prelim Date: 09/13/2022 8:58:36 AM Sign Date: 09/13/2022 8:58:36 AM Ordering Provider: [facility] ([place]) AMPICILLIN+SULBACTAM:SUSC:PT :ISOLATE:ORDQN:JOSEon 07-13-2022 Ampicillin+Sulbactam JOSE [Susc] 10,000 - 50,000 cfu/ml Klebsiella oxytoca Raoultella ornithinolytica [facility] Work Phone: Ampicillin+Sulbactam JOSE [Tomlinson sc]on 07-13-2022 Klebsiella oxytoca Raoultella ornithinolytica Klebsiella oxytoca Raoultella ornithinolytica [facility] Work Phone: Basophil percentageOrdered B y: Dr. Rob on 06-06-2022 Bilirubin [Mass/Vol] 0.30 mg/dL 0.20-1.00 [facility] Comment on above: For patients on eltr ombopag therapy, use of Dimension [place] TBIL is not recommended. Chloride [Moles/Vol] 106 mmol/L 98-107 [facility] Cholesterol [Mass/Vol] 189 mg/dL <200 [facility] Comment on above: <200 mg/dL Desirable 200-240 mg/dL Borderline >240 mg/dL High Risk Glucose [Mass/Vol] 95 mg/dL 74-106 [facility] Potassium [Moles/Vol] 4.5 mmol/L 3.5-5.1 [facility] Protein [Mass/Vol] 7.2 g/dL 6.4-8.2 [facility] Sodium [Moles/Vol] 141 mmol/L 136-145 [facility] Triglyceride [Mass/Vol] 130 mg/dL <199 [facility] Comment on above: The drugs N-Acetylcy steine and Metamizole may falsely depress this assay.Serum Triglycerides Reference Interval Normal <150 mg/dL Borderline high 150 - 199 mg/dL High 200 - 499 mg/dL Very High > or = 500 mg/dL WBC (Bld) [#/Vol] 5.7 10*3/uL 4.4-11.0 [facility] Blood erythrocytes count (nu mber/volume)Ordered By: Dr. Rob on 06-06-2022 RBC (Bld) [#/Vol] 4.04 10*6/uL 4.6-6.2 [facility] Blood hemoglobin measurement (mass/volume)Ordered By: Dr. Rob on 06-06-2022 Hemoglobin (Bld) [Mass/Vol] 12.8 g/dL 13.0-16.5 [facility] Blood platelet mean volumeOr dered By: Dr. Rob on 06-06-2022 Platelet mean volume (Bld) [Entitic vol] 9.5 fL 6.2-12.0 [facility] Determination of erythrocyte mean corpuscular volume (MCV)Ordered By: Dr. Rob on 06-06-2022 MCV (RBC) [Entitic vol] 95.8 fL 80-94 [facility] Hematocrit Auto (Bld) [Volum e fraction]Ordered By: Dr. Rob on 06-06-2022 Hematocrit (Bld) [Volume fraction] 38.7 % 40-54 [facility] Laboratory - Chemistry and C hemistry - challengeOrdered By: Dr. Rob on 06-06-2022 ALP [Catalytic activity/Vol] 56 U/L 45-117 [facility] ALT [Catalytic activity/Vol] 19 U/L 16-61 [facility] CO2 [Moles/Vol] 29.0 mmol/L 21.0-32.0 [facility] Globulin (S) [Mass/Vol] 4.2 g/dL 2.2-4.2 [facility] Urea nitrogen/Creatinine [Mass ratio] 21.6 mg/mg 10-20 [facility] - Hematology and Cell countsOrdered By: Dr. Rob on 06-06-2022 Erythrocyte distribution width (RBC) [Entitic vol] 44.9 fL 35.1-43.9 [facility] Erythrocyte distribution width (RBC) [Ratio] 12.7 % 11.6-14.6 [facility] MCH (RBC) [Entitic mass] 31.7 pg 27.0-32.0 [facility] MCHC Auto (RBC) [Mass/Vol]Or dered By: Dr. Rob on 06-06-2022 MCHC (RBC) [Mass/Vol] 33.1 g/dL 32-36 [facility] No Panel InformationOrdered By: Dr. Rob on 06-06-2022 Estimated GFR (MDRD) Amer 81 mL/min >60 [facility] Comment on above: GFR Calc Estimated GFR (MDRD) Non-Af Amer 67 mL/min >60 [facility] Comment on above: Non- GFR Calc Prostate Specific Antigen Screen 0.69 ng/mL 0.00-4.00 [facility] Comment on above: This test was perfor med using the TPSA assay method for the[employer] chemistry system. Values obtained with differentassay methods cannot be used interchangably.When changing PSA assays in the course of monitoring apatient, additional sequential testing should be carriedout to confirm baseline values. Thyroid Stimulating Hormone (TSH) 4.25 uIU/mL 0.358-3.74 [facility] Platelets bldOrdered By: Dr. Rob on 06-06-2022 Platelets (Bld) [#/Vol] 236 10*3/uL 150-450 [facility] Serum or plasma albumin los urement (mass/volume)Ordered By: Dr. Rob on 06-06-2022 Albumin [Mass/Vol] 3.0 g/dL 3.2-5.0 [facility] Serum or plasma albumin/glob ulin mass ratioOrdered By: Dr. Rob on 06-06-2022 Albumin/Globulin [Mass ratio] 0.7 {ratio} 0.9-2.4 [facility] Serum or plasma calcium los urement (mass/volume)Ordered By: Dr. Rob on 06-06-2022 Calcium [Mass/Vol] 8.8 mg/dL 8.5-10.1 [facility] Serum or plasma cholesterol in HDL measurement (mass/volume)Ordered By: Dr. Rob on 06-06-2022 Cholesterol in HDL [Mass/Vol] 55 mg/dL >40 [facility] Comment on above: The drugs N-Acetylcy steine and Metamizole may falsely depress this assay. Reference Range HDL <40 mg/dL Low HDL Cholesterol HDL >or= 60 mg/dL High HDL Cholesterol Serum or plasma cholesterol in VLDL measurement (mass/volume)Ordered By: Dr. Rob on 06-06-2022 Cholesterol in VLDL [Mass/Vol] 26 mg/dL 5-40 [facility] Serum or plasma creatinine m easurement (mass/volume)Ordered By: Dr. Rob on 06-06-2022 Creatinine [Mass/Vol] 1.16 mg/dL 0.70-1.30 [facility] Comment on above: The validity of the calculated GFR & GFRAA in patients over 70 years has not been determined. Clinical correlation is essential. Serum or plasma low density lipoprotein (LDL) cholesterol measurement (mass/volume)Ordered By: Dr. Rob on 06-06-2022 Cholesterol in LDL [Mass/Vol] 108 mg/dL 0-130 [facility] Serum or plasma urea nitroge n measurement (mass/volume)Ordered By: Dr. Rob on 06-06-2022 Urea nitrogen [Mass/Vol] 25 mg/dL 7-18 [facility] Thin prep Papanicolaou smear with manual screeningOrdered By: Dr. Rob on 06-06-2022 Thin prep Papanicolaou smear with manual screening 18 U/L 15-37 [facility] Thin prep Papanicolaou smear with manual screening 6 5-15 [facility] Absolute lymphocyte counton 01-26-2022 Lymphocytes Auto (Unsp spec) [#/Vol] 0.94 10*3/uL 0.83-4.51 [facility] Work Phone: Basophil percentageon 2021 Basophils/100 WBC (Bld) 0.2 % 0-1 [facility] Work Phone: Chloride [Moles/Vol] 94 mmol/L 98-107 [facility] Work Phone: Eosinophils/100 WBC (Bld) 0.0 % 0-5 [facility] Work Phone: Glucose [Mass/Vol] 98 mg/dL 74-106 [facility] Work Phone: Neutrophils (Bld) [#/Vol] 12.0 10*3/uL 2.0-7.7 [facility] Work Phone: Neutrophils/100 WBC (Bld) 79.6 % 47-70 [facility] Work Phone: Potassium [Moles/Vol] 4.0 mmol/L 3.5-5.1 [facility] Work Phone: Sodium [Moles/Vol] 133 mmol/L 136-145 oste [facility] Work Phone: [phone] WBC (Bld) [#/Vol] 15.0 10*3/uL 4.4-11.0 [place] [facility] Work Phone: [phone] Blood erythrocytes count (nu mber/volume)on 01-26-2022 RBC (Bld) [#/Vol] 3.81 10*6/uL 4.6-6.2 [facility] Work Phone: [phone] Blood hemoglobin measurement (mass/volume)on 01-26-2022 Hemoglobin (Bld) [Mass/Vol] 12.4 g/dL 13.0-16.5 [facility] Work Phone: [phone] Blood lymphocytes/100 leukoc yteson 01-26-2022 Lymphocytes/100 WBC (Bld) 6.3 % 19-41 [facility] Work Phone: [phone] Blood manual differential co mment interpretation (narrative result)on 01-26-2022 Manual differential comment Barrington (Bld) [Interp] COMMENT [facility] Work Phone: Comment on above: MONOCYTOSIS. Blood monocytes/100 leukocyt eson 01-26-2022 Monocytes/100 WBC (Bld) 13.5 % 0-10 [facility] Work Phone: [phone] Blood platelet mean volumeon 01-26-2022 Platelet mean volume (Bld) [Entitic vol] 10.0 fL 6.2-12.0 [facility] Work Phone: [phone] Determination of erythrocyte mean corpuscular volume (MCV)on 01-26-2022 MCV (RBC) [Entitic vol] 95.5 fL 80-94 [facility] Work Phone: [phone] Hematocrit Auto (Bld) [Volum e fraction]on 01-26-2022 Hematocrit (Bld) [Volume fraction] 36.4 % 40-54 [facility] Work Phone: [phone] Laboratory - Chemistry and C hemistry - challengeon 01-26-2022 CO2 [Moles/Vol] 31.0 mmol/L 21.0-32.0 [facility] Work Phone: [phone] Urea nitrogen/Creatinine [Mass ratio] 12.7 mg/mg 10-20 [facility] Work Phone: [phone] Laboratory - Hematology and Cell countson 01-26-2022 Erythrocyte distribution width (RBC) [Entitic vol] 45.1 fL 35.1-43.9 [facility] Work Phone: [phone] Erythrocyte distribution width (RBC) [Ratio] 12.8 % 11.6-14.6 [facility] Work Phone: [phone] Immature granulocytes/100 WBC (Bld) 0.400 % 0.0-0.9 [facility] Work Phone: [phone] Comment on above: IG% - Immature Granu locytes (promyelocytes, myelocytes and metamyelocytes) > 1% indicates that a LEFT SHIFT is Present. MCH (RBC) [Entitic mass] 32.5 pg 27.0-32.0 [facility] Work Phone: [phone] Nucleated RBC/100 WBC (Bld) [Ratio] 0 % 0-5 [facility] Work Phone: [phone] MCHC Auto (RBC) [Mass/Vol]on 01-26-2022 MCHC (RBC) [Mass/Vol] 34.1 g/dL 32-36 [facility] Work Phone: [phone] Panel Informationon 01-26 Estimated Creatinine Clearance Calc 55.04 ml/min [facility] Work Phone: [phone] Estimated GFR (MDRD) Amer 73 mL/min >60 [facility] Work Phone: [phone] Comment on above: GFR Calc Estimated GFR (MDRD) Non-Af Amer 61 mL/min >60 [facility] Work Phone: [phone] Comment on above: Non- GFR Calc Platelets bldon 01-26-2022 Platelets (Bld) [#/Vol] 168 10*3/uL 150-450 [facility] Work Phone: [phone] Review by pathologiston 12-30 Pathologist review Barrington (Unsp spec) [Interp] May foll [facility] Work Phone: [phone] Serum or plasma calcium los urement (mass/volume)on 01-26-2022 Calcium [Mass/Vol] 8.4 mg/dL 8.5-10.1 [facility] Work Phone: Serum or plasma creatinine m easurement (mass/volume)on 01-26-2022 Creatinine [Mass/Vol] 1.26 mg/dL 0.70-1.30 [facility] Work Phone: Comment on above: The validity of the calculated GFR & GFRAA in patients over 70 years has not been determined. Clinical correlation is essential. Serum or plasma urea nitroge n measurement (mass/volume)on 01-26-2022 Urea nitrogen [Mass/Vol] 16 mg/dL 7-18 [facility] Work Phone: Thin prep Papanicolaou smear with manual screeningon 01-26-2022 Thin prep Papanicolaou smear with manual screening 8 5-15 [facility] Work Phone: Comp Metabolic Panelon 06-07 Alanine aminotransferase (ALT) 14 U/L Normal 10-54 [facility] Comment on above: Performed By: #### C MP, LIPB, PSAS1 ####[place] [id number] [place], [place] [phone] Albumin 3.8 g/dL Low 3.9-4.9 [facility] Comment on above: Performed By: #### C MP, LIPB, PSAS1 ####[place] [id number] [place], [place] [phone] Alkaline phosphatase (ALP) 48 U/L Normal 36-108 [facility] Comment on above: Performed By: #### C MP, LIPB, PSAS1 ####[facility] [address] [place], [place] [phone] Anion gap 12 mmol/L Normal 9-18 [facility] Comment on above: Performed By: #### C MP, LIPB, PSAS1 ####[facility] [place], [place] [phone] Aspartate aminotransferase (AST) 19 U/L Normal 14-40 [facility] Comment on above: Performed By: #### C MP, LIPB, PSAS1 ####[place] [address] [place] [phone] Bilirubin (total) 0.2 mg/dL Normal 0.2-1.3 [facility] Comment on above: Performed By: #### C MP, LIPB, PSAS1 ####[place] [address] [address] [place] [phone] Calcium 9.2 mg/dL Normal 8.5-10.2 [facility] Comment on above: Performed By: #### C MP, LIPB, PSAS1 ####[place] [address] [address] [place] [phone] Chloride 103 mmol/L Normal 97-105 [facility] Comment on above: Performed By: #### C MP, LIPB, PSAS1 ####[place] [address] [address] [place] [phone] CO2 29 mmol/L Normal 22-30 [facility] Comment on above: Performed By: #### C MP, LIPB, PSAS1 ####[place] [address] [address] [place] [phone] Creatinine 1.06 mg/dL Normal 0.73-1.22 [facility] Comment on above: Performed By: #### C MP, LIPB, PSAS1 ####[place] [address] [address] [place] [phone] eGFR (non-black) mL/min/{1.73_m2} Normal [facility] Comment on above: Result Comment: eGFR (Estimated GFR) Units of measure: mL/min/1.73 meters squaredeGFR is derived from the reexpressed MDRD Study equation using the following parameters: serum creatinine, age, gender and race. The creatinine assay has been calibrated to be traceable to IDMS.An eGFR <60 mL/min/1.73m2 for >3 months is consistent with chronic kidney disease. Refer to KDOQI guidelines for clinical interpretation.In patients with unstable renal function, e.g. those with acute kidney injury, the eGFR may not accurately reflect actual GFR. Performed By: #### C MP, LIPB, PSAS1 ####[facility] [place], [place] [phone] Glucose mass conc 82 mg/dL Normal 74-99 [facility] Comment on above: Result Comment: The [place] Diabetes Association (ADA) provides guidance for cutoff values for fasting glucose and random glucose. The ADA defines fasting as no caloric intake for at least 8 hours. Fasting plasma glucose results between 100 to 125 mg/dL indicate increased risk for diabetes (prediabetes).Fasting plasma glucose results greater than or equal to 126 mg/dL meet the criteria for diagnosis of diabetes. In the absence of unequivocal hyperglycemia, results should be confirmed by repeat testing. In a patient with classic symptoms of hyperglycemia or hyperglycemic crisis, random plasma glucose results greater than or equal to 200 mg/dL meet the criteria for diagnosis of diabetes.Reference: Standards of Medical Care in Diabetes 2016, [place] [employer] Association. Diabetes Care. 2016.39(Suppl 1). Performed By: #### C MP, LIPB, PSAS1 ####[facility] [place], [place] [phone] Potassium molar conc 4.1 mmol/L Normal 3.7-5.1 [facility] Comment on above: Performed By: #### C MP, LIPB, PSAS1 ####[facility] [place], [place] [phone] Protein 6.9 g/dL Normal 6.3-8.0 [facility] Comment on above: Performed By: #### C MP, LIPB, PSAS1 ####[facility], [place] [phone] Sodium 144 mmol/L Normal 136-144 [facility] Comment on above: Performed By: #### C MP, LIPB, PSAS1 ####[facility], [place] [phone] Urea nitrogen 17 mg/dL Normal 9-24 [facility] Comment on above: Performed By: #### C MP, LIPB, PSAS1 ####[facility] [address] [place] [phone] Lipid Panel, [place] 018 Cholesterol 206 mg/dL High <200 [facility] Comment on above: Result Comment: <200 mg/dL, Desirable 200-239 mg/dL, Borderline high>239 mg/dL, High Performed By: #### C MP, LIPB, PSAS1 ####[facility] [address] [place] [phone] Fasting Time Unknown Normal [facility] Comment on above: Performed By: #### C MP, LIPB, PSAS1 ####[place] [address] [place] [phone] HDL Cholesterol 46 mg/dL Normal >39 [facility] Comment on above: Result Comment: 40-5 9 mg/dL, Acceptable>59 mg/dL, High: Negative risk factor for coronary heart disease<40 mg/dL, Low: Positive risk factor for coronary heart disease Performed By: #### C MP, LIPB, PSAS1 ####[place] [phone] LDL Cholesterol 129 mg/dL High <100 [facility] Comment on above: Result Comment: <100 mg/dL, Optimal 100-129 mg/dL, Near optimal/above optimal 130-159 mg/dL, Borderline high 160-189 mg/dL, High>189 mg/dL, Very highSecondary prevention optimal LDL Cholesterol levels are recommended to be < 70 mg/dL Performed By: #### C MP, LIPB, PSAS1 ####[place] [phone] LDL:HDL Ratio 2.80 High <2.54 [facility] Comment on above: Result Comment: Refe rence:1. National Cholesterol Education Program ATP III Guideline At-A-Glance Quick Desk Reference: National Heart, Lung, and Blood [place]. National Institutes of Health. 2001: NIH Publication No. 01-3305.2. An International Atherosclerosis Society position paper: global recommendations for the management of dyslipidemia: executive summary, Atherosclerosis. 2014: 232(2):410-413. Performed By: #### C MP, LIPB, PSAS1 ####[place] [address] [place] [phone] Non HDL Cholesterol 160 mg/dL High <130 [facility] Comment on above: Result Comment: <130 mg/dL, Optimal 130-159 mg/dL, Near optimal/above optimal 160-189 mg/dL, Borderline high 190-219 mg/dL, High>219 mg/dL, Very highSecondary prevention optimal non HDL Cholesterol levels are recommended to be < 100 mg/dL Performed By: #### C MP, LIPB, PSAS1 ####[address] [phone] TC:HDL Ratio 4.48 Normal <5.10 [facility] Comment on above: Performed By: #### C MP, LIPB, PSAS1 ####[place] [address] [address] [place] [phone] Triglyceride 157 mg/dL High <150 [facility] Comment on above: Result Comment: <150 mg/dL, Normal 150-199 mg/dL, Borderline high 200-499 mg/dL, High>499 mg/dL, Very high Performed By: #### C MP, LIPB, PSAS1 ####[place] [address] [address] [place] [phone] VLDL Cholesterol 31 mg/dL High <[address] [facility] Comment on above: Performed By: #### C MP, LIPB, PSAS1 ####[address]CKyle, [place] [phone] PSA, Screeningon 06-07-2017 PSA, Screening 1.28 ng/mL Normal 0.00-2.59 [facility] Comment on above: Result Comment: Esperanza de la cruz PSA test methodology used is the Electrochemiluminescence Immunoassay. Performed By: #### C MP, LIPB, PSAS1 ####[facility] [address] [place], [place] [phone] Vital Signs Date Time Vital Sign Value Performing Clinician Alejandro block 01-26-2022 09:28-0400 Diastolic blood pressure 63 mm[Hg] [facility] Work Phone: 01-26-2022 09:28-0400 Heart rate 85 /min [facility] Work Phone: 01-26-2022 09:28-0400 Respiratory rate 23 /min [facility] Work Phone: 01-26-2022 09:28-0400 SaO2% (BldA) [Mass fraction] 96 % [facility] Work Phone: 01-26-2022 09:28-0400 Systolic blood pressure 99 mm[Hg] [facility] Work Phone: 01-26-2022 07:20-0400 Body temperature 98.6 [degF] [facility] Work Phone: 01-26-2022 07:13-0400 Body height 172.72 cm [facility] Work Phone: 01-26-2022 07:13-0400 Body mass index (BMI) [Ratio] 26.2 kg/m2 [facility] Work Phone: 01-26-2022 07:13-0400 Body weight 78.1 kg [facility] Work Phone: Encounters Encounter Date Encounter Type Care Provider Facility Start: 08-27-2024 ambulatory Pb Bonner Facility:[facility] Start: 01-30-2024 End: 01-30-2024 Emergency department patient visit Jordan Lopez Facility:[facility] Start: 08-21-2023 End: 08-21-[address] [facility] Work Phone: Start: 08-21-2023 End: 08-21-[address] [facility] Start: 06-19-2023 End: 06-19-[address] [facility] Work Phone: Start: 04-20-2023 End: 04-20-[address] [facility] Work Phone: Start: 04-20-2023 End: 04-20-[address] [facility] Work Phone: Start: 03-13-2023 End: 03-14-2023 ambulatory AZRA CHAMBERLAIN MD Facility:A Start: 03-06-2023 End: 03-07-2023 ambulatory AZRA CHAMBERLAIN MD Facility:A Start: 02-06-2023 End: 02-07-2023 ambulatory BAL BOLANOS APRN-SOFTWARE PROJECT ENGINEER Facility:B Start: 01-15-2023 End: 01-15-[address] [facility] Work Phone: Start: 01-15-2023 End: 01-15-[address] [facility] Work Phone: Start: 12-20-2022 Registered Recurring [facility] Work Phone: Start: 12-18-2022 Registered Recurring [facility] Work Phone: Start: 12-16-2022 End: 12-16-[address] [facility] Work Phone: Start: 12-16-2022 End: 12-16-[address] [facility] Work Phone: Start: 12-14-2022 End: 12-14-[address] [facility] Work Phone: Start: 12-14-2022 End: 12-14-[address] [facility] Work Phone: Start: 10-05-2022 End: 10-05-[address] [facility] Work Phone: Start: 10-04-2022 End: 10-05-2022 ambulatory ENA STUBBS MD Facility:A Start: 10-04-2022 End: 10-04-2022 Patient encounter procedure ENA STUBBS MD [facility] Start: 10-02-2022 End: 10-03-2022 ambulatory BAL BOLANOS [employer] SCIENCE TUTOR-SOFTWARE PROJECT ENGINEER Facility:B Start: 10-02-2022 End: 10-02-2022 Patient encounter procedure BAL BOLANOS [employer] SCIENCE TUTOR-SOFTWARE PROJECT ENGINEER [facility] Start: 09-18-2022 End: 09-19-2022 ambulatory JOAQUIN FLIGHT Facility:A Start: 09-12-2022 End: 09-13-2022 ambulatory JOAQUIN FLIGHT Facility:B Start: 09-05-2022 End: 09-06-2022 ambulatory JOAQUIN FLIGHT Facility:A Start: 09-05-2022 End: 09-05-2022 Patient encounter procedure JOAQUIN FLIGHT [employer] SCIENCE TUTOR-SOFTWARE PROJECT ENGINEER [facility] Start: 08-07-2022 End: 08-07-[address] [facility] Work Phone: Start: 08-07-2022 End: 08-07-[address] [facility] Work Phone: Start: 07-13-2022 End: 07-18-2022 ambulatory ANG ROB Facility:B Start: 07-13-2022 End: 07-17-2022 Outreach Lab ANG ROB DO [facility] Start: 06-06-2022 End: 06-06-[address] [facility] Work Phone: Start: 06-06-2022 End: 06-06-[address] [facility] Start: 01-26-2022 End: 01-26-2022 Emergency department patient visit [facility] Start: 07-06-2021 End: 07-06-[address] [facility] Start: 04-27-2021 End: 05-01-2021 Outreach Lab ANG TIJERINASANavdeep THAPA [facility] Procedures Date Procedure Procedure Detail Performing Clinician Start: 12-14-2022 Ultrasonography of abdomen Start: 01-26-2022 Plain chest X-ray Start: 09-23-2020 Ventriculoperitoneal shunt device (physical object) ANG LIANE DO Start: 10-08-2017 Colonoscopy ANG PARMAR DO Comment on above: repeat 7 years, Dr Gabby james Cataract (morphologi c abnormality) ANG LIANE [facility] Comment on above: right Ear canal finding (finding) ANG TIJERINASAY [facility] H/O: surgery Status post ventriculo-peritone al shunt placement( Confirmed ) ANG LIANE [facility] Plan of Treatment Date Care Activity Detail Author Start: 01-26-2022 [facility] Work Phone: Patient Education Coronavirus Di sease 2019 (COVID-19): Caring for Yourself or Others ED Weakness (Uncertain Cause) [facility] Work Phone: Patient referral [facility] Work Phone: Immunizations Immunization Date Immunization Notes Care Provider Gavino decker 05-10-2022 influenza, injectabl e, quadrivalent, contains preservative; Translations: [Fluarix PF Quadrivalent ] ANG ROB DO [facility] [place] 05-05-2021 SARS-CoV-2 (COVID-19 ) mRNA-1273 vaccine ANG ROB DO [facility] [place] 07-07-2020 SARS-CoV-2 (COVID-19 ) mRNA-1273 vaccine ANG ROB DO [facility] Comment on above: Result Comment: 2022: [id number] 06-10-2020 SARS-CoV-2 (COVID-19 ) mRNA-1273 vaccine ANG ROB DO [facility] 02-13-2020 influenza virus vaccine, unspecified formulation ANG ROB DO [facility] 12-12-2017 tetanus toxoid, redu kendrick diphtheria toxoid, and acellular pertussis vaccine, adsorbed ANG ROB DO [facility] 12-02-2017 zoster vaccine recombinant ANG ROB DO [facility] 07-27-2015 tetanus toxoid, redu kendrick diphtheria toxoid, and acellular pertussis vaccine, adsorbed ANG LIANE DO [facility] Payers Date Payer Category Payer Self-pay [id number] 2017 Medicaid [id number] 1991 Medicare [id number] 1991 Medicare [id number] [id number] 1954 Unknown [id number] 2.16.8 [id number] 1954 Unknown [id number] 2.16.8 [id number] 1954 Unknown [id number] 2.16.8 [id number] 1954 Unknown [id number] 2.16.8 [id number] 1954 Unknown [id number] 2.16.8 [id number] 1954 Unknown [id number] 2.16.8 [id number] 1954 Unknown [id number] 2.16.8 [id number] 1954 Unknown [id number] 2.16.8 [id number] 1954 Unknown [id number] 2.16.8 [id number] Unknown [id number] 2.16.8 [id number] Unknown [id number] 2.16.8 [id number] Social History Date Type Detail Facility Start: 09-09-2020 Ex-smoker (finding) [facility] Comment on above: quit smoking 1990 Start: 1955 Sex Assigned At Male A [facility] Start: 01-26-2022 End: 01-26-2022 Tobacco smoking status ALIS Unknown if ever smoked [facility] Medical Equipment Procedure Code Equipment Code Equipment Original Text Equipment Identifier Dates FDA Start: 09-23-2020 FDA Start: 09-23-2020 FDA Start: 09-23-2020 Craniotomy Stere otactic Ventriculoperito Unknown 09/23/20 Unknown Unknown FDA Start: 09-23-2020 Craniotomy Stere otactic Ventriculoperito Unknown 09/23/20 Unknown Unknown FDA Start: 09-23-2020 Craniotomy Stere otactic Ventriculoperito Unknown 09/23/20 Unknown Unknown FDA Start: 09-23-2020 Craniotomy Stere otactic Ventriculoperito Unknown 09/23/20 Unknown Unknown FDA Start: 09-23-2020 Craniotomy Stere otactic Ventriculoperito Unknown 09/23/20 Unknown Unknown FDA Start: 09-23-2020 Craniotomy Stere otactic Ventriculoperito Unknown 09/23/20 Unknown Unknown FDA Start: 09-23-2020 Craniotomy Stere otactic Ventriculoperito Unknown 09/23/20 Unknown Unknown FDA Start: 09-23-2020 Craniotomy Stere otactic Ventriculoperito Unknown 09/23/20 Unknown Unknown FDA Start: 09-23-2020 Craniotomy Stere otactic Ventriculoperito Unknown 09/23/20 Unknown Unknown FDA Start: 09-23-2020 Craniotomy Stere otactic Ventriculoperito Unknown 09/23/20 Unknown Unknown FDA Start: 09-23-2020 Craniotomy Stere otactic Ventriculoperito Unknown 09/23/20 Unknown Unknown FDA Start: 09-23-2020 Craniotomy Stere otactic Ventriculoperito Unknown 09/23/20 Unknown Unknown FDA Start: 09-23-2020 Mental Status Date Assessment Result Facility 01-26-2022 Cognitive function Level Of Cons ciousness Awake;Alert;Appropriate;Follow s Commands [facility] Work Phone: Clinical Notes 07-16-2022 to 10-02-2022 LaboratoryRadiologyRadiology Note Date & Type Note Facility 10-02-2022 Note ORIGINAL HISTORY: Dizziness, gait disturbance, shunt COMPARISON: 12 Sep 2022 TECHNIQUE: Routine non-contrast head CT with sagittal and coronal reconstructions This exam was performed according to our departmental dose optimization program, and includes the following measures where applicable: automated exposure control, adjustment of the mAs and/or kVp according to patient size and/or exam, and an iterative reconstruction algorithm. FINDINGS: There is a ventriculostomy catheter with right occipital approach in tip near the anterior septum. There is otherwise mild to moderate ventriculomegaly, disproportionate to sulcal with. There are no abnormal intra or extra-axial fluid collections. Casillas-white matter differentiation is maintained. IMPRESSION: No significant change in ventricle size and no significant change overall. Interpreted by: Joe Flores MD Preliminary Report By: Joe Folres MD Electronically signed By Joe Flores MD Dictated Date: 10/02/2022 12:24:54 PM Prelim Date: 10/02/2022 12:27:14 PM Sign Date: 10/02/2022 12:27:14 PM Ordering Provider: [facility] [place] 10-02-2022 Note ORIGINAL HISTORY: Dizziness, gait disturbance, shunt COMPARISON: 12 Sep 2022 TECHNIQUE: Routine non-contrast head CT with sagittal and coronal reconstructions This exam was performed according to our departmental dose optimization program, and includes the following measures where applicable: automated exposure control, adjustment of the mAs and/or kVp according to patient size and/or exam, and an iterative reconstruction algorithm. FINDINGS: There is a ventriculostomy catheter with right occipital approach in tip near the anterior septum. There is otherwise mild to moderate ventriculomegaly, disproportionate to sulcal with. There are no abnormal intra or extra-axial fluid collections. Casillas-white matter differentiation is maintained. IMPRESSION: No significant change in ventricle size and no significant change overall. Interpreted by: Joe Flores MD Preliminary Report By: Joe Flores MD Electronically signed By Joe Flores MD Dictated Date: 10/02/2022 12:24:54 PM Prelim Date: 10/02/2022 12:27:14 PM Sign Date: 10/02/2022 12:27:14 PM Ordering Provider: [facility] [place] 07-16-2022 Note . MICRO - Microbiology PROCEDURE: Urine Culture [*1] SOURCE: Urine, Clean Catch BODY SITE: COLLECTED DATE/TIME: 07/13/2022 11:36 EDT RECEIVED DATE/TIME: 07/13/2022 22:15 EDT START DATE/TIME: 07/13/2022 22:15 EDT FREE TEXT SOURCE: FINAL REPORTS Final Report [] Verified Date/Time/Personnel: 07/16/2022 07:28 EDT 10,000 - 50,000 cfu/ml Klebsiella oxytoca Raoultella ornithinolytica PRELIMINARY REPORTS Preliminary Report [] Verified Date/Time/Personnel: 07/15/2022 08:47 EDT 10,000 - 50,000 cfu/ml Klebsiella oxytoca Raoultella ornithinolytica JOSE to follow Preliminary Report [] Verified Date/Time/Personnel: 07/14/2022 08:36 EDT Culture results pending. SUSCEPTIBILITY RESULTS Klebsiella oxytoca Raoultella ornithinolytica Antibiotic JOSE Dilut JOSE Inter Ampicillin >16 Resistant Ampicillin/ 8/4 Susceptible Sulbactam Aztreonam <=4 Susceptible Cefazolin >16 Resistant Cefotaxime <=2 Susceptible Cefuroxime <=4 Susceptible Ciprofloxacin <=0.25 Susceptible Ertapenem <=0.5 Susceptible Gentamicin <=2 Susceptible Imipenem <=1 Susceptible Levofloxacin <=0.5 Susceptible Meropenem <=1 Susceptible Minocycline <=4 Susceptible Nitrofurantoin <=32 Susceptible Piperacillin/ <=8 Susceptible Tazobactam Trimethoprim/ <=0.5/9.5 Susceptible Sulfa Performing Locations *1: This test was performed at: [facility], [address] [place] [address], [address] [place] [address] ([place]) Evaluation + Plan note Future Appointments Appointment Date:09/21/2021 03:15:00 PM Scheduled Provider:ANG ROB DO Location:[facility] Appointment Type:PC OV Future Scheduled TestsIron Level 03/09/21Prostate Specific Antigen 03/09/21Thyroid Stimulating Hormone 03/09/21Complete Blood Count 03/09/21CT Stereotactic Localization 09/15/20 [facility] Evaluation + Plan note Future Appointments Appointment Date:07/26/2022 08:30:00 AM Scheduled Provider:ANG ROB DO Location:[facility] Appointment Type:PC OV Appointment Date:09/27/2022 03:00:00 PM Scheduled Provider:ANG ROB DO Location:[facility] Appointment Type:PC OV Follow Up [facility] Evaluation + Plan note Future Appointments Appointment Date:09/12/2022 01:30:00 PM Scheduled Provider: Location:[facility] Appointment Type:CT Head or Brain w/o Contrast Appointment Date:09/18/2022 11:00:00 AM Scheduled Provider: Location:[facility] Appointment Type:NS OV Appointment Date:09/27/2022 03:00:00 PM Scheduled Provider:ANG ROB DO Location:[facility] Appointment Type:PC OV Follow Up Future Scheduled TestsXR Shuntogram 09/05/22CT Head or Brain w/o Contrast 09/12/22 [facility] Evaluation + Plan note Future Appointments Appointment Date:10/04/2022 11:15:00 AM Scheduled Provider: Location:[facility] Appointment Type:NS OV Appointment Date:04/04/2023 03:00:00 PM Scheduled Provider:ANG ROB DO Location:[facility] Appointment Type:PC OV Follow Up [facility] Evaluation + Plan note Future Appointments Appointment Date:04/04/2023 03:00:00 PM Scheduled Provider:ANG ROB DO Location:[facility] Appointment Type:PC OV Follow Up [facility] Evaluation note No assessment inform ation available [facility] Work Phone: Hospital course Narrative No data available for this section [facility] Hospital Discharge instructions No data available for this section [facility] Hospital Discharge instructions Additional Instructions Chest x-ray normal. Labs White count 15. Sodium 133. Take medication as prescribed. Return if any respiratory symptoms or pulse ox less than 88%. [facility] Work Phone: Progress note No data available for this section [facility] Summary Purpose Family History No Family History Records FoundNo Family History Records FoundNo Family History Records Found Advance Directives No Advanced Directives Records Found Advance Directive Response Recorded Date/ Time Living Will Yes January 26, 2022 7:40am Power of Pony Roll Finisher Yes December 7:40am Name of Medical Power of Pony Roll Finisher Alek Velez January 26, 2022 7:40am Advance Directive Response Recorded Date/ Time Living Will Yes January 26, 2022 6:40am Power of Pony Roll Finisher Yes December 6:40am Advance Directive Response Recorded Date/ Time Living Will Yes January 26, 2022 7:40am Power of Pony Roll Finisher Yes December 7:40am Chief Complaint and Reason for Visit Chief Complaint NORMAL PRESSURE HYDR OCEPHALUS. RX HERE Chief Complaint WEAKNESS, COVID Chief Complaint HYDROCEPHALUS/ FEEDI NG DIFFICULTY. RX HERE Chief Complaint SKYE COLORED STOOLS HYDROCEPHALUS RX HERE Chief Complaint HYDROCEPHALUS RX HER E Chief Complaint Encounter for screen ing for malignant neoplasm of Additional Source Comments (unrecognized sect ion and content) No Status Records FoundNo Status Records FoundNo Status Records Found INFORMATION SOURCE (unrecogn ized section and content) DATE CREATED AUTHOR 10/22/2017 [facility] DATE CREATED AUTHOR AUTHOR'S ORGANIZ ATION 03/19/2023 [facility] ([place]) DATE CREATED AUTHOR AUTHOR'S ORGANIZ ATION 09/01/2024 [facility] Goals (unrecognized section and content) Goals may be documented in a n alternate section Care Teams (unrecognized sec tion and content) Team Status: Active Member Role Status Dates Dr. Ang Rob DO Family Provider Active Dr. Ang Rob DO Primary Care Provider Active Team Status: Inactive Member Role Status Dates Dr. Ang Rob DO Primary Care Provider, Attendi ng Provider Active Team Status: Inactive Member Role Status Dates Dr. Ang Rob DO Primary Care Pro vider, Attending Provider, Referring Provider Active Team Status: Inactive Member Role Status Dates Dr. Ang Rob DO Primary Care Provider Active Dr. Susan Pizarro MD Attending Provider, Referring P yvan Active Team Status: Active Member Role Status Dates Dr. Ang Rob DO Primary Care Pro vider, Attending Provider, Referring Provider Active FOR RECORDS PERTAINING TO PATIENTS WHO ARE OR HAVE BEEN ENROLLED IN A CHEMICAL DEPENDENCY/SUBSTANCEABUSE PROGRAM, SOME INFORMATION MAY BE OMITTED. This clinical summary was aggregated from multiple sources. Caution should be exercised in using it in the provision of clinical care. This summary normalizes information from multiple sources, and as a consequence, information in this document may materially change the coding, format and clinical context of patient data. In addition, data may be omitted in some cases. CLINICAL DECISIONS SHOULD BE BASED ON THE PRIMARY CLINICAL RECORDS. [facility] tabulate [facility]. provides no warranty or guarantee of the accuracy or completeness of information in this document.
[2024-10-06 08:16] LABS: Hematocrit 38.9 % (40-54); Hemoglobin 12.7 g/dL (13.0-16.5); Mean Corp Hgb Conc 32.6 g/dL (32-36); Mean Corpuscular Hgb 31.8 pg (27.0-32.0); Mean Corpuscular Volume 97.5 fL (80-94); Mean Platelet Vol. 9.9 fl (6.2-12.0); Platelet Count 250 K/mm3 (150-450); RBC Distribution Width CV 13.2 % (11.6-14.6); RBC Distribution Width SD 47.6 fl (35.1-43.9); Red Blood Count 3.99 M/mm3 (4.6-6.2); White Blood Count 5.9 K/mm3 (4.4-11.0)
[2024-10-06 08:34] LABS: Ammonia 10.1 umol/L (16-60)
[2024-10-06 08:51] LABS: Hemoglobin A1c 5.8 % (<=5.6); Valproic Acid (Depakene) Level 97 ug/mL (50-100)
[2024-10-06 08:53] LABS: ALB/GLOB Ratio 1.1 RATIO (0.9-2.4); AST(SGOT) 14 U/L (<=37); Alanine Aminotransfer ALT/SGPT 11 U/L (<=46); Albumin, Serum 3.6 g/dL (3.4-4.8); Alkaline Phosphatase 57 U/L (40-129); Anion Gap 11 (5-15); BUN 23 mg/dL (4-19); Calcium,Total 9.1 mg/dL (7.6-11.0); Carbon Dioxide 25.1 mmol/L (21.0-32.0); Chloride 105 mmol/L (98-108); Cholesterol 199 mg/dL (<=200); Creatinine, Serum 1.17 mg/dL (0.70-1.20); EST Glomerular Filtration Rate 67 (>60); Globulin 3.3 g/dL (2.2-4.2); Glucose 97 mg/dL (70-99); High Density Lipoprotein 54 mg/dL; Low Density Lipoprotein Calc. 120 mg/dL; Potassium 4.2 mmol/L (3.3-5.1); Protein, Total 6.9 g/dL (5.9-8.4); Sodium Level 141 mmol/L (133-145); Total Bilirubin 0.21 mg/dL (0.00-1.30); Triglycerides 124 mg/dL; Very Low Density Lipoprotein 25 mg/dL (5-40); cholesterol:hdl ratio screen 3.66
[2024-10-07 04:07] LABS: PROLACTIN 45.2 ng/mL (3.6-25.2)
== END | disposition home or self-care (01) ==
LOC: LAB 07:26
PROVIDERS: PCP Preventive Medicine Occupational Medicine; Referring Provider Psychiatry & Neurology Psychiatry; Visit Provider Psychiatry & Neurology Psychiatry
DX: Z79.899 Other long term (current) drug therapy (principal)
CPT/HCPCS: 36415; 80053; 80061; 80164; 82140; 83036; 84146; 85027

== ENCOUNTER → 2024-12-05 | Outpatient (CLI) | payer MEDICARE, MEDICAID, SELFPAY ==
[2024-12-05 11:43] LABS: Hematocrit 38.2 % (40-54); Hemoglobin 12.6 g/dL (13.0-16.5); Mean Corp Hgb Conc 33.0 g/dL (32-36); Mean Corpuscular Volume 98.5 fL (80-94); Mean Platelet Vol. 9.9 fl (6.2-12.0); Platelet Count 234 K/mm3 (150-450); RBC Distribution Width CV 13.2 % (11.6-14.6); RBC Distribution Width SD 47.6 fl (35.1-43.9); Red Blood Count 3.88 M/mm3 (4.6-6.2); White Blood Count 5.5 K/mm3 (4.4-11.0)
[2024-12-05 12:27] LABS: AST(SGOT) 17 U/L (<=37); Alanine Aminotransfer ALT/SGPT 11 U/L (<=46); Albumin, Serum 3.7 g/dL (3.4-4.8); Alkaline Phosphatase 56 U/L (40-129); Anion Gap 11 (5-15); BUN 19 mg/dL (4-19); BUN/Creat Ratio 17.5 RATIO (10-20); Calcium,Total 9.0 mg/dL (7.6-11.0); Carbon Dioxide 27.6 mmol/L (21.0-32.0); Chloride 102 mmol/L (98-108); Cholesterol 176 mg/dL (<=200); Globulin 3.0 g/dL (2.2-4.2); Glucose 85 mg/dL (70-99); Low Density Lipoprotein Calc. 90 mg/dL; PSA,Total- Diagnostic 0.93 ng/mL (0.00-4.00); Potassium 3.9 mmol/L (3.3-5.1); Triglycerides 139 mg/dL; Very Low Density Lipoprotein 28 mg/dL (5-40); cholesterol:hdl ratio screen 3.03
== END | disposition home or self-care (01) ==
LOC: LAB 10:08
PROVIDERS: PCP Nurse Practitioner Family; Referring Provider Nurse Practitioner Family; Visit Provider Nurse Practitioner Family
DX: Z00.00 Encounter for general adult medical examination without abnormal findings (principal); F20.89 Other schizophrenia; F31.9 Bipolar disorder, unspecified; E03.9 Hypothyroidism, unspecified; N40.0 Benign prostatic hyperplasia without lower urinary tract symptoms
CPT/HCPCS: 36415; 80053; 80061; 84153; 84439; 84443; 85027